=== PATIENT | male | born 1945 | race Caucasian/White ===

== ENCOUNTER 2017-10-10 13:32 | Observation (INO) | payer MEDICARE, OTHER ==
[~2017-10-10] VITALS: Ht 175.3 cm; Wt 64.4 kg
[~2017-10-10 13:32] MED LIST: AC325T PO; AC500T PO; ALLP100T PO; AMLO5TAB2 PO; ASPI1TAB PO; ASPI325T32 PO; ATIVAN PO; BELLADONNA; BETA15CR5 TP; BETH25TA PO; BETHAMETHASONE EXT; CARDURA PO; CEPH-38 PO; CETI10TA17 PO; CITA20TA4 PO; CLTR1C90 TP; CYCL10TA9 PO; DICL250C8 PO; DICL500C PO; DOXA8TAB33 PO; FURO40TA4 PO; GBPN300C PO; GLIPIZIDE PO; HYDR-3720 PO; HYDR1TAB86 PO; HYDROCODONE PO; INDERAL PO; INSASP10V SQ; INSU100I10 SQ; INSU100I23 SQ; INSU100V6 SQ; LISI40TA PO; LORA0.5T PO; MULT-963 PO; MULT1TAB53 PO; NEURONTIN PO; NIAC750T PO; NPPH15OP OU; ONDA-42 SL; ONDA-43 PO; OTC ALLERGY MED; OXYB5TAB9 PO; PHEN16.297 PO; POTA10TA36 PO; PROP40TA5 PO; PROP80TA3 PO; SULF-222 PO; SULF1TAB23 PO; SULF1TAB38 PO; VARD20TA30 PO; ZYLOPRIM PO; [UNRECOGNIZED DRUG - OTHER]; [UNRECOGNIZED DRUG - REMARK]
--- OUTSIDE RECORDS SUMMARY | 2017-10-10 13:37 | XMS REPORT ---
Author Author DERRICK TANG Organization [employer] Address Unknown Phone Unavailable Care Team Providers Care Movement Assembler Name Role Phone DERRICK TANG CP Unavailable Allergies No Known Allergies Problems Problem Type Condition Code Onset Dates Condition Status Problem Lymphedema I89.0 Active Problem Allergic rhinitis, unspecified allergic rhinitis type J30.9 Active Problem Urinary retention R33.9 Active Problem Benign prostatic hyperplasia with lower urinary tract symptoms, prostatic enlargement of unspecified morphology N40.1 Active Problem 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 Active Problem Microalbuminuria R80.9 Active Problem Generalized anxiety disorder F41.1 Active Problem Essential hypertension I10 Active Problem Type 2 diabetes mellitus with diabetic polyneuropathy E11.42 Active Medications Medication Code System Code Instructions Start Date End Date Status Dosage Lortab [facility] [address]-22 10-325 MG Orally every 4-6 hrs as needed for pain November 24, [address] [facility] [address]-82 0.5 MG September 25, 2014 take 1 tablet (0.5 mg) by oral route 2 times per day Results No Known Results Summary Purpose [employer] Submission
--- OUTSIDE RECORDS SUMMARY | 2017-10-10 13:37 | XMS REPORT ---
Author Author CLYDE DERRICK Organization [facility] Address [address] [place] [address] Care Team Providers Care Lens Generating Machine Tender Name Role Phone VINCE TANGHANY Unavailable PROBLEMS Type Condition ICD9-CM Code QTT24-EA Code Onset Dates Condition Status SNOMED Code Problem Lymphedema I89.0 Active 141945423 Problem Generalized anxiety disorder F41.1 Active 293529003 Problem Essential hypertension I10 Active 60298394 Problem Bilateral primary osteoarthritis of knee M17.0 Active 647254479 Problem Chronic edema R60.9 Active 549966874 Problem Tear of left rotator cuff, unspecified tear extent M75.102 Active 395529471 Problem Type 2 diabetes mellitus with diabetic polyneuropathy E11.42 Active 514721075 Problem Chronic prescription opiate use Z79.899 Active 957706765 Problem 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 Active 051970736 Problem 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 Active 384752136 Problem Urinary retention R33.9 Active 682918084 Problem Physical debility R53.81 Active 21524275 Problem Microalbuminuria R80.9 Active 032011931 Problem Benign prostatic hyperplasia with lower urinary tract symptoms, prostatic enlargement of unspecified morphology N40.1 Active 504693776 Problem Allergic rhinitis, unspecified allergic rhinitis type J30.9 Active 34035007 ALLERGIES No Information SOCIAL HISTORY Never Assessed PLAN OF CARE VITAL SIGNS MEDICATIONS Unknown Medications RESULTS No Results PROCEDURES No Known procedures IMMUNIZATIONS No Known Immunizations MEDICAL (GENERAL) HISTORY Type Description Date Medical History type II diabetes Medical History hypertension Medical History Arthritis Medical History hernia - 1950 Medical History Cellulitis in past Surgical History cataract surgery Surgical History hernia repair Surgical History Lesion removed on L foot & skin graft Hospitalization History Cellulitis
--- OUTSIDE RECORDS SUMMARY | 2017-10-10 13:37 | XMS REPORT ---
Author Author DERRICK TANG [employer] Address Unknown Phone Unavailable Care Team Providers Care Design And Sales Consultant Name Role Phone DERRICK TANG CP Unavailable Allergies No Known Allergies Problems Problem Type Condition Code Onset Dates Condition Status Problem Generalized anxiety disorder F41.1 Active Problem Type 2 diabetes mellitus with diabetic polyneuropathy E11.42 Active Problem Microalbuminuria R80.9 Active Problem Allergic rhinitis, unspecified allergic rhinitis type J30.9 Active Problem Lymphedema I89.0 Active Problem 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 Active Problem Tear of left rotator cuff, unspecified tear extent M75.102 Active Problem Chronic prescription opiate use Z79.899 Active Problem Benign prostatic hyperplasia with lower urinary tract symptoms, prostatic enlargement of unspecified morphology N40.1 Active Problem Essential hypertension I10 Active Problem 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 Active Problem Urinary retention R33.9 Active Medications Medication Code System Code Instructions Start Date End Date Status Dosage MS Contin [facility] [address]-05 15 MG Orally every 12 hrs May 01, 2016 1 tablet Results No Known Results Summary Purpose [employer] Submission
--- OUTSIDE RECORDS SUMMARY | 2017-10-10 13:37 | XMS REPORT ---
Author Author DERRICK TANG [facility] [employer] Address Unknown Phone Unavailable Care Team Providers Care Director Of Rooms Name Role Phone DERRICK TANG Unavailable Allergies No Known Allergies Problems Problem Type Condition ICD-9 Code Onset Dates Condition Status Problem Lumbago 724.2 Active Problem Unspecified essential hypertension 401.9 Active Problem Diabetes with neurological manifestations, type II or unspecified type , not stated as uncontrolled 250.60 Active Problem Polyneuropathy in diabetes 357.2 Active Problem Microalbuminuria due to type 2 diabetes mellitus 250.00 Active Problem Anxiety 300.00 Active Problem Chronic pain 338.29 Active Problem Unspecified disorder of bladder 596.9 Active Problem Hypertrophy (benign) of prostate without urinary obstruction and other lower urinary tract symptoms [LUTS] 600.00 Active Problem Lymphedema 457.1 Active Problem Generalized osteoarthrosis, unspecified site 715.00 Active Medications Medication Code System Code Instructions Start Date End Date Status Dosage Bethanechol Chloride [facility] [address]-36 25 MG Orally 3 times a day Apr 21, 2014 1 tablet Results No Known Results Summary Purpose [employer] Submission
--- OUTSIDE RECORDS SUMMARY | 2017-10-10 13:38 | XMS REPORT ---
Author Author JESSICA MICHEL [facility] Address [address] [place] [address] Care Team Providers Care Scrap Preparer Name Role Phone JESSICA MICHEL Unavailable PROBLEMS Type Condition ICD9-CM Code CIB44-PP Code Onset Dates Condition Status SNOMED Code Problem Lymphedema I89.0 Active 650232333 Problem Generalized anxiety disorder F41.1 Active 998129109 Problem Essential hypertension I10 Active 24963938 Problem Bilateral primary osteoarthritis of knee M17.0 Active 913501893 Problem Chronic edema R60.9 Active 728478606 Problem Tear of left rotator cuff, unspecified tear extent M75.102 Active 937407030 Problem Type 2 diabetes mellitus with diabetic polyneuropathy E11.42 Active 634534529 Problem Chronic prescription opiate use Z79.899 Active 117803545 Problem 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 Active 489638852 Problem 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 Active 356651589 Problem Urinary retention R33.9 Active 577807229 Problem Physical debility R53.81 Active 93634801 Problem Microalbuminuria R80.9 Active 198746654 Problem Benign prostatic hyperplasia with lower urinary tract symptoms, prostatic enlargement of unspecified morphology N40.1 Active 564350903 Problem Allergic rhinitis, unspecified allergic rhinitis type J30.9 Active 22007358 ALLERGIES Substance Reaction Event Type Date Status Iodine Unknown Drug Allergy Dec, Active Gabapentin Unknown Drug Allergy Dec, Active Metformin Unknown Drug Allergy Dec, Active ENCOUNTERS Encounter Location Date Diagnosis [facility] [address] [facility] [id number] [address] Oct, [facility] [id number] [address] Sep, Lymphedema I89.0 [facility] [address] [facility] [id number], [place] [address] Sep, [facility] [address] [address] Aug, [facility] [id number] [place] [address]333- 0299 Jun, [facility] [id number] [place] [address]33- 8857 May, [facility] [id number] [place] [address] 77500- 0501 Apr, 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 and Generalized anxiety disorder F41.1 [facility] [id number] [place] [address] 43142- 8611 Apr, [facility] [id number] [place] [address]17- 8649 Apr, 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 ; Generalized anxiety disorder F41.1 ; Lymphedema I89.0 and Chronic edema R60.9 [facility] [address] [place] [address]- 9956 Mar, Cellulitis of left lower extremity L03.116 ; 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 and Bilateral primary osteoarthritis of knee M17.0 [facility] [address] [place] [address]98- 5050 Mar, 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 and Generalized anxiety disorder F41.1 [facility] [address] [place] [address] 77630- 5913 Feb, [facility] [address] [place] [address] 24838- 5358 Feb, [facility] [address] [place] [address] 62927- 2654 Feb, 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 [facility] [id number] [place] [address] 90329- 2027 Feb, 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 and Generalized anxiety disorder F41.1 [facility] [id number] [place] [address] 47200- 0925 Jan, Cellulitis of left lower extremity L03.116 ; Chronic edema R60.9 and Essential hypertension I10 [facility] [id number] [place] [address] 74204- 4847 Jan, 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 and Generalized anxiety disorder F41.1 [place] [facility] [address] [address]- 2640 Dec, 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 and Generalized anxiety disorder F41.1 [facility] [facility] [address] [address]- 6479 Dec, Cellulitis of right lower extremity L03.115 [place] [address] [address]- [address] November, [place] [facility] [address] [address]- 0713 November, Generalized anxiety disorder F41.1 and 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 [place] [facility] [address] [address]- 5270 Oct, Muscle spasm M62.838 and Cellulitis of left lower extremity L03.116 [facility] [id number] [place] [address] 81021- 9584 Oct, Generalized anxiety disorder F41.1 and 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 [facility] [id number] [place] [address] 33773- 5567 Oct, [facility] [id number] [place] [address] 46137- 3789 Sep, Lymphedema I89.0 ; Generalized anxiety disorder F41.1 ; Type 2 diabetes mellitus with diabetic polyneuropathy E11.42 ; Chronic prescription opiate use Z79.899 ; Urinary retention R33.9 ; Cellulitis of left lower extremity L03.116 ; Muscle spasm M62.838 and 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 [facility] [id number] [place] [address] 62501- 6450 Sep, [facility] [address], [place] [address] 12[address] Aug, [facility] [address] [place] [address] 45059- 8704 Aug, [facility] [address], [place] [address] Aug, Lymphedema I89.0 [facility] [id number] [place] [address] 749162- 0211 Jul, [facility] [id number] [place] [address] 353203- 0494 Jun, [facility] [id number] [place] [address] 658408- 5022 May, [facility] [id number] [place] [address] 05280- 8624 Apr, [facility] [address], [place] [address] 9909 Apr, 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 [facility] [address] [place] [address] 22859- 8113 Apr, Type 2 diabetes mellitus with diabetic polyneuropathy E11.42 ; 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 ; Lymphedema I89.0 ; Chronic prescription opiate use Z79.899 and Generalized anxiety disorder F41.1 [facility] [address], [place] [address] Mar, [facility] [address] [address] Mar, [facility] [address], [place] [address] 8853 Feb, [facility] [address] Jan, [facility] [address], [place] [address] 16 Dec, 2015 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 ; Type 2 diabetes mellitus with diabetic polyneuropathy E11.42 ; Generalized anxiety disorder F41.1 and Anemia, unspecified type D64.9 [facility] [address], [place] [address]- 7844 Dec, [facility] [id number] [place] [address] 35824- 6155 November, [facility] [id number] [place] [address] 68098- 6799 Oct, [facility] [id number] [place] [address] 90223- 7844 Sep, [facility] [id number] [place] [address] 75719- 5186 Sep, 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 and Generalized anxiety disorder F41.1 [facility] [id number] [place] [address] 00235- 4130 Aug, [facility] [address] [place] [address] 12875- 3872 Aug, [facility] [address] [place] [address] 24850- 7452 Aug, [facility] [address] [place] [address] 47070- 6632 Aug, 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 ; Essential hypertension I10 ; Type 2 diabetes mellitus with diabetic polyneuropathy E11.42 ; Chronic prescription opiate use Z79.899 ; 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 ; Tear of left rotator cuff, unspecified tear extent M75.102 and Iron deficiency anemia, unspecified iron deficiency anemia type D50.9 [facility] [address] [place] [address] 51547- 9585 05 Aug, 2015 [facility] [id number] [place] [address] 56454- 7662 Aug, [facility] [address], [place] [address]- 5663 Jul, [facility] [id number] [place] [address] 66457- 2314 Jun, [facility] [id number] [place] [address] 69609- 7146 May, 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 ; Urinary retention R33.9 ; Essential hypertension I10 ; Generalized anxiety disorder F41.1 ; Microalbuminuria R80.9 ; Type 2 diabetes mellitus with diabetic polyneuropathy E11.42 ; Allergic rhinitis, unspecified allergic rhinitis type J30.9 and Iron deficiency anemia, unspecified iron deficiency anemia type D50.9 [facility] [address], [place] [address]- 5884 Apr, [facility] [id number] [place] [address] 78623- 5113 Mar, [facility] [id number] [place] [address] 59120- 4101 Mar, [facility] [id number] [place] [address] 05972- 9817 Feb, [facility] [id number] [place] [address] 37896- 7248 Jan, [facility] [id number] [place] [address] 62332- 0270 Dec, [facility] [id number] [place] [address] 42811- 9642 Dec, Generalized osteoarthrosis, unspecified site 715.00 ; Chronic pain 338.29 ; Unspecified essential hypertension 401.9 and Lymphedema 457.1 [facility] [address], [place] [address]- 7616 Dec, [facility] [id number] [place] [address] 23920- 9364 November, [facility] [place] [facility] [address] [id number] [place] [address]- 4574 14 Oct, 2014 [facility] [place] [facility] [address] [id number] [place] [address]- 1781 Oct, [facility] [place] [facility] [address] [id number] [place] [address]- 0905 Sep, [facility] [place] [facility] [address] [id number] [place] [address]- 3066 Sep, [facility] [place] [facility] [address] [id number] [place] [address]- 6363 Sep, [facility] [place] [facility] [address] [id number] [place] [address]- 0991 Sep, [facility] [place] [facility] [address] [facility] [id number] [place] [address]- 8924 Sep, [facility] [place] [facility] [address] [facility] [id number] [place] [address]- 7654 Sep, [facility] [place] [facility] [address] [facility] [id number] [place] [address]- 9050 Aug, 2014 [facility] [place] [facility] [address] [facility] [id number] [place] [address]- 7264 Aug, 2014 [facility] [place] [facility] [address] [facility] [id number] [place] [address]- 0481 Aug, 2014 [facility] [place] [facility] [address] [facility] [id number] [address]- 0883 Aug, 2014 [facility] [place] [facility] [address] [facility] [id number] [place] [address]- 4037 Aug, 2014 [facility] [place] [facility] [address] [id number] [place] [address]- 8059 Aug, 2014 [facility] [place] [facility] [address] [facility] [id number] [place] [address]783 Aug, 2014 [facility] [place] [facility] [address] [facility] [id number], [place] [address]- 5167 Aug, [facility] [address] [id number] [place] [address]- 7265 Jul, [facility] [place] [facility] [address] [id number] [place] [address]- 3467 Jul, [facility] [place] [facility] [address] [id number] [place] [address]- 2388 Jul, [facility] [place] [facility] [address] [id number] [place] [address]- 5099 Jul, [facility] [place] [facility] [address] [id number] [place] [address]- 7720 Jul, [facility] [place] [facility] [address] [id number] [place] [address]- 7846 Jul, [facility] [place] [facility] [address] [facility] [id number] [place] [address]- 9855 Jun, [facility] [place] [facility] [address] [id number] [place] [address]- 0518 Jun, [facility] [place] [facility] [address] [id number] [place] [address]- 9195 Jun, [facility] [place] [facility] [address] [facility] [id number] [place] [address]- 5026 Jun, [facility] [place] [facility] [address] [id number] [place] [address]- 6559 Jun, [facility] [place] [facility] [address] [id number] [place] [address]- 7647 Jun, [facility] [place] [facility] [address] [id number] [place] [address]- 6675 Jun, [facility] [place] [facility] [address] [id number] [place] [address]- 5555 Jun, [facility] [place] [facility] [address] [facility] [id number] [place] [address]- 4558 Jun, [facility] [place] [facility] [id number], [place] [address]- 2546 Jun, [facility] [id number], [place] [address] 2546 Jun, [facility] [address] [facility] [id number], [place] [address]- 2546 May, [facility] [address], [place] [address]- 2546 May, [facility] [address] [facility] [id number], [place] [address]- 2546 May, [facility] [address], [place] [address]- 6316 Apr, [facility] [id number], [place] [address]- 0335 Apr, [facility] [address], [place] [address]- 1391 Apr, [facility] [address], [place] [address]- 5088 Apr, [facility] [address], [place] [address]- 2559 Mar, [facility] [id number] [address]- 3476 Mar, [facility] [id number] [address]- 5006 Mar, [facility] [id number] [address]- 2547 Mar, [facility] [id number], [place] [address]- 6189 Feb, IMMUNIZATIONS No Known Immunizations SOCIAL HISTORY Never Assessed REASON FOR VISIT leg swelling for a week or more and a sore on the back of the right calf- Damion [facility] PLAN OF CARE Activity Details Follow Up Regular appt. Reason: VITAL SIGNS Height 70 in 2016-12-19 Weight 175 lbs 2016-12-19 Temperature 98.9 degrees Fahrenheit 2016-12-19 Heart Rate 62 bpm 2016-12-19 Respiratory Rate 20 2016-12-19 BMI 25.11 kg/m2 2016-12-19 Blood pressure systolic 98 mmHg 2016-12-19 Blood pressure diastolic 54 mmHg 2016-12-19 MEDICATIONS Medication Instructions Dosage Frequency Start Date End Date Duration Status Lantus 100 UNIT/ML 6-7 Units 1 time per day Mar, Active Flonase 50 MCG/ACT Nasally Once a day 1 spray in each nostril 24h Active propranolol 80 mg take 1 tablet (80 mg) by oral route 2 times per day Aug, Active Lisinopril 20 MG 20 Mg by Oral route 2 times per day Sep, Active Multivitamin 1 Tablet 1 time per day Mar, Active Ativan 0.5 MG Orally 2 times a day take 1 tablet (0.5 mg) 12h Sep, 28 days Active MS Contin 15 MG Orally every 12 hrs 1 tablet 12h Apr, 28 days Active Cardura 8 mg 0.5 Tablet 2 times per day Mar, Active Potassium Chloride 10 mEq Orally 2 times a day 1 tablet with food 12h Mar, 30 days Active Betamethasone Dipropionate 0.05 % Externally Once a day prn 1 application to affected area Active Cefdinir 300 MG Orally every 12 hrs 1 capsule 12h Dec, Dec, 07 days Active Visine-A 0.025-0.3 % 2 Drops by Ophthalmic route 4 times per day PRN Sep, Active Furosemide 40 MG take 1 tablet (40 mg) by oral route 2 times per day Mar, Active Ondansetron 8 MG take 1 tablet on top of the tongue where it will dissolve , then swallow by Oral route every 8 hours Jun, Active Bethanechol Chloride 25 MG Orally 3 times a day 1 tablet 8h Apr, Active Lortab 10-325 MG Orally 3 times a day 1 tablet as needed 8h November, 28 days Active RESULTS No Results PROCEDURES Procedure Date Ordered Result Body Site COUNT INCLUDES THE [facility] VISIT ESTABLISHED PATIENT December 19, 2016 INSTRUCTIONS MEDICATIONS ADMINISTERED No Known Medications MEDICAL (GENERAL) HISTORY Type Description Date Medical History type II diabetes Medical History hypertension Medical History Arthritis Medical History hernia - 1950 Medical History Cellulitis in past Surgical History cataract surgery Surgical History hernia repair Surgical History Lesion removed on L foot & skin graft Hospitalization History Cellulitis
--- OUTSIDE RECORDS SUMMARY | 2017-10-10 13:38 | XMS REPORT ---
Author Author DERRICK TANG Organization [facility] Address [address] [place] [address] Care Team Providers Care Upper Doubler Name Role Phone DERRICK TANG Unavailable PROBLEMS Type Condition ICD9-CM Code [id number] Code Onset Dates Condition Status SNOMED Code Problem Allergic rhinitis, unspecified allergic rhinitis type J30.9 Active 48768251 Problem Essential hypertension I10 Active 66961357 Problem Lymphedema I89.0 Active 244088957 Problem Benign prostatic hyperplasia with lower urinary tract symptoms, prostatic enlargement of unspecified morphology N40.1 Active 563974098 Problem 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 Active 488355471 Problem Urinary retention R33.9 Active 712528770 Problem Microalbuminuria R80.9 Active 923356990 Problem Chronic edema R60.9 Active 665497999 Problem Chronic prescription opiate use Z79.899 Active 447945390 Problem Type 2 diabetes mellitus with diabetic polyneuropathy E11.42 Active 072222909 Problem Generalized anxiety disorder F41.1 Active 269241169 Problem 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 Active 155696266 Problem Tear of left rotator cuff, unspecified tear extent M75.102 Active 082091590 ALLERGIES No Information SOCIAL HISTORY Never Assessed PLAN OF CARE VITAL SIGNS MEDICATIONS Medication Instructions Dosage Frequency Start Date End Date Duration Status Ativan 0.5 MG take 1 tablet (0.5 mg) by oral route 2 times per day Sep, Active Lortab 10-325 MG Orally 3 times a day as needed 1 tablet November, Active MS Contin 15 MG Orally every 12 hrs 1 tablet 12h Apr, Active RESULTS No Results PROCEDURES No Known procedures [...]
--- OUTSIDE RECORDS SUMMARY | 2017-10-10 13:38 | XMS REPORT ---
Author Author RAMIREZ FERRER Organization [employer] Address Unknown Phone Unavailable Care Team Providers Care Industrial Sales Manager Name Role Phone RAMIREZ FERRER CP Unavailable Allergies No Known Allergies Problems Problem Type Condition Code Onset Dates Condition Status Problem Lumbago [...] Start Date End Date Status Dosage Lortab [facility] [address]-97 10-325 MG Orally every 4-6 hrs as needed for pain November 24, 2014 1 tablet Ativan [facility] [address]-16 0.5 MG September 25, 2014 take 1 tablet (0.5 mg) by oral route 2 times per day Results No Known Results Summary Purpose [employer] Submission
--- OUTSIDE RECORDS SUMMARY | 2017-10-10 13:38 | XMS REPORT ---
Author Author CLYDE DERRICK Organization [facility] Address [address] [place] [address] Care Team Providers Care Truck Headlight Assembler Name Role Phone DERRICK TANG Unavailable PROBLEMS Type Condition ICD9-CM Code [id number] Code Onset Dates Condition Status SNOMED Code Problem Microalbuminuria R80.9 Active 585491487 Problem Essential hypertension I10 Active 13669678 Problem Type 2 diabetes mellitus with diabetic polyneuropathy E11.42 Active 316516716 Problem Allergic rhinitis, unspecified allergic rhinitis type J30.9 Active 47421777 Problem Lymphedema I89.0 Active 059842007 Problem Generalized anxiety disorder F41.1 Active 267367649 Problem Chronic prescription opiate use Z79.899 Active 353012577 Problem 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 Active 341483257 Problem Urinary retention R33.9 Active 560319800 Problem Benign prostatic hyperplasia with lower urinary tract symptoms, prostatic enlargement of unspecified morphology N40.1 Active 211181055 Problem Tear of left rotator cuff, unspecified tear extent M75.102 Active 738677176 Problem 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 Active 274899684 ALLERGIES Unknown Allergies SOCIAL HISTORY No smoking Hx information available PLAN OF CARE VITAL SIGNS MEDICATIONS Medication Instructions Dosage Frequency Start Date End Date Duration Status Ativan 0.5 MG take 1 tablet (0.5 mg) by oral route 2 times per day Sep, Active MS Contin 15 MG Orally every 12 hrs- Appt needded in Mar 1 tablet Aug Active Lortab 10-325 MG Orally 3 times a day as needed- appt needed in Mar. tablet November, Active RESULTS No Results PROCEDURES No Known procedures IMMUNIZATIONS No Known Immunizations
--- OUTSIDE RECORDS SUMMARY | 2017-10-10 13:38 | XMS REPORT ---
Author Author SAMIR OSBORN Organization [employer] Address Unknown Phone Unavailable Care Team Providers Care Medical Receptionist Medical Assistant Name Role Phone SAMIR OSBORN CP Unavailable Allergies No Known Allergies Problems [...] Instructions Start Date End Date Status Dosage Ativan [facility] [address]-98 0.5 MG September 25, 2014 take 1 tablet (0.5 mg) by oral route 2 times per day Lortab [facility] [address]-27 10-325 MG Orally every 4-6 hrs as needed for pain November 24, 2014 1 tablet Results No Known Results Summary Purpose [employer] Submission
--- OUTSIDE RECORDS SUMMARY | 2017-10-10 13:38 | XMS REPORT ---
Author Author CLYDEDERRICK CALDWELL Organization [facility] Address [address] [place] [address] Care Team Providers Care Hand Turner Name Role Phone DERRICK TANG Unavailable PROBLEMS Type Condition ICD9-CM Code [id number] Code Onset Dates Condition Status SNOMED Code Problem Allergic rhinitis, unspecified allergic rhinitis type J30.9 Active 17352927 Problem Essential hypertension I10 Active 15787331 Problem Lymphedema I89.0 Active 878123557 Problem Benign prostatic hyperplasia with lower urinary tract symptoms, prostatic enlargement of unspecified morphology N40.1 Active 942139091 Problem 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 Active 567609609 Problem Urinary retention R33.9 Active 254189843 Problem Microalbuminuria R80.9 Active 943429957 Problem Chronic edema R60.9 Active 152569593 Problem Chronic prescription opiate use Z79.899 Active 490111394 Problem Type 2 diabetes mellitus with diabetic polyneuropathy E11.42 Active 786154332 Problem Generalized anxiety disorder F41.1 Active 876484299 Problem 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 Active 780558731 Problem Tear of left rotator cuff, unspecified tear extent M75.102 Active 584791048 ALLERGIES Unknown Allergies SOCIAL HISTORY No smoking Hx information available PLAN OF CARE VITAL SIGNS MEDICATIONS Medication Instructions Dosage Frequency Start Date End Date Duration Status Ativan 0.5 MG take 1 tablet (0.5 mg) by oral route 2 times per day Sep, Active MS Contin 15 MG Orally every 12 hrs 1 tablet 12h 13 Apr, 2016 Active Lortab 10-325 MG Orally 3 times a day as needed 1 tablet November, Active RESULTS No Results PROCEDURES No Known procedures IMMUNIZATIONS No Known Immunizations
--- OUTSIDE RECORDS SUMMARY | 2017-10-10 13:39 | XMS REPORT ---
Author Author CLYDE DERRICK Organization [facility] Address [address] [place] [address] Care Team Providers Care Mining Engineering Technologist Name Role Phone VINCE TANGHANY Unavailable PROBLEMS Type Condition ICD9-CM Code ZUQ75-UT Code Onset Dates Condition Status SNOMED Code Problem Allergic rhinitis, unspecified allergic rhinitis type J30.9 Active 71051587 Problem Essential hypertension I10 Active 60938899 Problem Lymphedema I89.0 Active 773819092 Problem Benign prostatic hyperplasia with lower urinary tract symptoms, prostatic enlargement of unspecified morphology N40.1 Active 500183595 Problem 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 Active 556442279 Problem Urinary retention R33.9 Active 867320408 Problem Microalbuminuria R80.9 Active 916425655 Problem Chronic edema R60.9 Active 434039848 Problem Chronic prescription opiate use Z79.899 Active 054293077 Problem Type 2 diabetes mellitus with diabetic polyneuropathy E11.42 Active 176712852 Problem Generalized anxiety disorder F41.1 Active 452534312 Problem 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 Active 882002480 Problem Tear of left rotator cuff, unspecified tear extent M75.102 Active 694042186 ALLERGIES No Information SOCIAL HISTORY Never Assessed PLAN OF CARE VITAL SIGNS MEDICATIONS Medication Instructions Dosage Frequency Start Date End Date Duration Status Lortab 10-325 MG Orally 3 times a day as needed 1 tablet November, Active Ativan 0.5 MG take 1 tablet (0.5 mg) by oral route 2 times per day Sep, Active Ondansetron 8 MG take 1 tablet on top of the tongue where it will dissolve , then swallow by Oral route every 8 hours Jun, Active MS Contin 15 MG Orally every 12 hrs 1 tablet 12h 13 Apr, 2016 Active RESULTS No Results PROCEDURES No Known [...]
--- OUTSIDE RECORDS SUMMARY | 2017-10-10 13:39 | XMS REPORT ---
Author Author DERRICK TANG [employer] Address Unknown Phone Unavailable Care Team Providers Care Development Executive Name Role Phone DERRICK TANG CP Unavailable Allergies, Adverse Reactions, Alerts Substance Reaction Event Type Iodine Info Not Available Drug Allergy Gabapentin Info Not Available Drug Allergy Metformin Info Not Available Drug Allergy Problems Problem Type Condition Code Onset Dates Condition Status Assessment 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 Active Problem Lymphedema I89.0 Active Problem Allergic rhinitis, [...] diabetes mellitus with diabetic polyneuropathy E11.42 Active Assessment Iron deficiency anemia, unspecified iron deficiency anemia type D50.9 Active Assessment Microalbuminuria R80.9 Active Assessment Generalized anxiety disorder F41.1 Active Assessment Allergic rhinitis, unspecified allergic rhinitis type J30.9 Active Assessment Essential hypertension I10 Active Assessment Type 2 diabetes mellitus with diabetic polyneuropathy E11.42 Active Assessment Urinary retention R33.9 Active Medications Medication Code System Code Instructions Start Date End Date Status Dosage Fexofenadine-Pseudoephed ER [facility] [address]-29 60-120 MG Orally Twice a day as needed for allergies May 29, 2015 1 tablet as needed Visine-A [facility] [address]-74 0.025-0.3 % October 05, 2014 2 Drops by Ophthalmic route 4 times per day PRN cyclobenzaprine [facility] [address]-11 10 mg Mar 23, 2014 take 1 tablet (10 mg) by oral route 2 times per day Bethanechol Chloride [facility] [address]-48 25 MG Orally 3 times a day Apr 21, 2014 1 tablet Cardura [facility] [address]-86 8 mg Mar 23, 2014 0.5 Tablet 2 times per day Flonase [facility] [address]-66 50 MCG/ACT Nasally Once a day 1 spray in each nostril Furosemide [facility] [address]-40 40 MG Mar 23, 2014 take 1 tablet ( 40 mg) by oral route 2 times per day Ondansetron [facility] [address]-08 8 mg Jun 28, 2014 take 1 tablet on top of the tongue where it will dissolve, then swallow by Oral route every 8 hours Lisinopril [facility] [address]-46 20 MG Orally October 05, 2014 20 Mg by Oral route 2 times per day Potassium Chloride [facility] [address]-18 10 mEq Mar 23, 2014 take 1 tablet (10 meq) by oral route 2 times per day with food Katty Allergy [facility] [address]-63 60 MG Orally Twice a day 1 tablet propranolol [facility] 0 80 mg Sep 01, 2014 take 1 tablet (80 mg) by oral route 2 times per day Multivitamin [facility] [address] Mar 23, 2014 1 Tablet 1 time per day Lantus [facility] [address]-11 100 unit/mL Mar 23, 2014 4-5 Units 1 time per day Lortab [facility] [address]-64 10-325 MG Orally every 4-6 hrs as needed for pain November 24, 2014 1 tablet Procedures Procedure Coding System Code Date GLYCATED HEMOGLOBIN TEST CPT-4 53796 May 29, 2015 [facility] VISIT ESTABLISHED PATIENT CPT-4 G0467 May 29, 2015 MICROALBUMIN, SEMIQUANT CPT-4 57791 May 29, 2015 Office Visit, Est Pt., Level 4 CPT-4 27124 May 29, 2015 Vital Signs Date/Time: May 29, 2015 Temperature 97.8 F Weight 151.0 lbs Height 70 in BMI 21.66 Index Blood Pressure Diastolic 68 mmHg Blood Pressure Systolic 130 mmHg Cardiac Monitoring Heart Rate 72 bpm Results Name Result Date Reference Range Unit Abnormality Flag A1C (IN HOUSE) Summary Purpose [employer]Works Submission
--- OUTSIDE RECORDS SUMMARY | 2017-10-10 13:39 | XMS REPORT ---
Author Author DERRICK TANG [employer] Address Unknown Phone Unavailable Care Team Providers Care Hedis Registered Nurse Rn Name Role Phone DERRICK TANG CP Unavailable Allergies, Adverse Reactions, Alerts Substance Reaction Event Type Iodine Info Not Available Drug Allergy Gabapentin Info Not Available Drug Allergy Metformin Info Not Available Drug Allergy Problems Problem Type Condition Code Onset Dates Condition Status Problem Generalized anxiety disorder F41.1 Active Problem Type 2 diabetes mellitus with diabetic polyneuropathy E11.42 Active Problem Microalbuminuria R80.9 Active Problem 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 Active Problem Tear of left rotator cuff, unspecified tear extent M75.102 Active Problem Chronic prescription opiate use Z79.899 Active Problem Benign prostatic hyperplasia with lower urinary tract symptoms, prostatic enlargement of unspecified morphology N40.1 Active Problem Essential hypertension I10 Active Problem 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 Active Problem Urinary retention R33.9 Active Assessment Generalized anxiety disorder F41.1 Active Assessment 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 Active Assessment Type 2 diabetes mellitus with diabetic polyneuropathy E11.42 Active Assessment Chronic prescription opiate use Z79.899 Active Problem Allergic rhinitis, unspecified allergic rhinitis type J30.9 Active Assessment Lymphedema I89.0 Active Problem Lymphedema I89.0 Active Medications Medication Code System Code Instructions Start Date End Date Status Dosage propranolol NDC 0 80 mg Sep 01, 2014 take 1 tablet (80 mg) by oral route 2 times per day Visine-A [facility] [address]-61 0.025-0.3 % October 05, 2014 2 Drops by Ophthalmic route 4 times per day PRN Fexofenadine-Pseudoephed ER [facility] [address]-55 60-120 MG Orally Twice a day as needed for allergies May 29, 2015 1 tablet as needed Lantus [facility] [address]-02 100 UNIT/ML Mar 23, 2014 6-7 Units 1 time per day Potassium Chloride [facility] [address]-06 10 mEq Mar 23, 2014 take 1 tablet (10 meq) by oral route 2 times per day with food Multivitamin [facility] [address]35 Mar 23, 2014 1 Tablet 1 time per day Furosemide [facility] [address]-81 40 MG Mar 23, 2014 take 1 tablet ( 40 mg) by oral route 2 times per day Ondansetron [facility] [address]-67 8 MG Jun 28, 2014 take 1 tablet on top of the tongue where it will dissolve, then swallow by Oral route every [address] [facility] [address]-58 15 MG Orally every 12 hrs- Appt needded in MarApr 30, [address] [facility] [address]-36 0.5 MG Appt needed in September 25, 2014 take 1 tablet (0.5 mg) by oral route 2 times per day Lis[address]ril [facility] [address]-67 20 MG Orally October 05, 2014 20 Mg by Oral route 2 times per day Lortab [facility] [address]-09 10-325 MG Orally 3 times a day as needed- appt needed in November 24, [address] [facility] [address]-29 25 MG Orally 3 times a day Apr 21, [address] [facility] [address]-06 8 mg Mar 23, 2014 0.5 Tablet 2 times per day cyclobenzaprine [facility] [address]-40 10 mg Mar 23, 2014 take 1 tablet (10 mg) by oral route 2 times per day Flonase [facility] [address]-41 50 MCG/ACT Nasally Once a day 1 spray in each nostril Procedures Procedure Coding System Code Date No Charge CPT-4 07190 Apr 30, 2016 [facility] VISIT ESTABLISHED PATIENT CPT-4 G0467 Apr 30, 2016 GLYCATED HEMOGLOBIN TEST CPT-4 95244 Apr 30, 2016 Office Visit, Est Pt., Level 3 CPT-4 80854 Apr 30, 2016 Vital Signs Date/Time: Apr 30, 2016 Cardiac Monitoring Heart Rate 72 bpm Weight 149.1 lbs Height 70 in BMI 21.39 Index Blood Pressure Diastolic 82 mmHg Blood Pressure Systolic 124 mmHg Results No Known Results Summary Purpose [employer]Works Submission
--- OUTSIDE RECORDS SUMMARY | 2017-10-10 13:39 | XMS REPORT ---
Author Author DERRICK TANG Organization [employer] Address Unknown Phone Unavailable Care Team Providers Care Supervisor Litharge Name Role Phone DERRICK TANG CP Unavailable [...] Start Date End Date Status Dosage Ativan [facility] [address]-76 0.5 MG September 25, 2014 take 1 tablet (0.5 mg) by oral route 2 times per day Lortab [facility] [address]-62 10-325 MG Orally every 4-6 hrs as needed for pain November 24, 2014 1 tablet Potassium Chloride [facility] [address]-75 10 mEq Mar 23, 2014 take 1 tablet (10 meq) by oral route 2 times per day with food Results No Known Results Summary Purpose [employer]Works Submission
--- OUTSIDE RECORDS SUMMARY | 2017-10-10 13:39 | XMS REPORT ---
Author Author DERRICK TANG Organization [employer] Address Unknown Phone Unavailable Care Team Providers Care Jukebox Operator Name Role Phone DERRICK TANG CP Unavailable [...] Start Date End Date Status Dosage Ativan [facility] [address]-59 0.5 MG September 25, 2014 take 1 tablet (0.5 mg) by oral route 2 times per day Lortab [facility] [address]-62 10-325 MG Orally every 4-6 hrs as needed for pain November 24, 2014 1 tablet Results No Known Results Summary Purpose [employer] Submission
--- OUTSIDE RECORDS SUMMARY | 2017-10-10 13:39 | XMS REPORT ---
Author Author DERRICK TANG [facility] [employer] Address Unknown Phone Unavailable Care Team Providers Care Casing Cleaner Name Role Phone DERRICK TANG CP Unavailable [...] Active Problem Urinary retention R33.9 Active Medications No Known Medications Results No Known Results Summary Purpose [employer] Submission
--- OUTSIDE RECORDS SUMMARY | 2017-10-10 13:39 | XMS REPORT ---
Author Author ZACH MURRAY [facility] Address [address] [place] [address] Care Team Providers Care Bag Shaker Name Role Phone ZACH MURRAY Unavailable PROBLEMS Type Condition ICD9-CM Code [id number] Code Onset Dates Condition Status SNOMED Code Problem Lymphedema I89.0 Active 161208540 Problem Generalized anxiety disorder F41.1 Active 508581589 Problem Essential hypertension I10 Active 71857276 Problem Bilateral primary osteoarthritis of knee M17.0 Active 137097910 Problem Chronic edema R60.9 Active 482260307 Problem Tear of left rotator cuff, unspecified tear extent M75.102 Active 778053883 Problem Type 2 diabetes mellitus with diabetic polyneuropathy E11.42 Active 927475507 Problem Chronic prescription opiate use Z79.899 Active 954253289 Problem 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 Active 599740970 Problem 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 Active 245142461 Problem Urinary retention R33.9 Active 037948001 Problem Physical debility R53.81 Active 74787265 Problem Microalbuminuria R80.9 Active 026688000 Problem Benign prostatic hyperplasia with lower urinary tract symptoms, prostatic enlargement of unspecified morphology N40.1 Active 466854117 Problem Allergic rhinitis, unspecified allergic rhinitis type J30.9 Active 78199199 ALLERGIES No Information ENCOUNTERS Encounter Location Date Diagnosis [facility] [place] [id number] [address] Oct, [facility] [place] [address], [place] [address] Sep, Lymphedema I89.0 [facility] [place] [id number], [place] [address] Sep, [facility] [place] [id number] [address] Aug, [facility] [place] [address], [place] [address] Jun, [facility] [place] [id number] [place] [address] 80101- 9125 May, [facility] [place] [id number] [place] [address] 31565- 4979 Apr, 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 and Generalized anxiety disorder F41.1 [facility] [place] [id number] [place] [address] 70994- 6573 Apr, [facility] [place] [id number] [place] [address] 18600- 4314 Apr, 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 ; Generalized anxiety disorder F41.1 ; Lymphedema I89.0 and Chronic edema R60.9 [facility] [place] [id number] [place] [address] 15218- 8311 Mar, Cellulitis of left lower extremity L03.116 ; 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 and Bilateral primary osteoarthritis of knee M17.0 [facility] [place] [id number] [place] [address] 82205- 3018 Mar, 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 and Generalized anxiety disorder F41.1 [facility] [place] [id number] [place] [address] 87947- 8973 Feb, [facility] [place] [id number] [place] [address] 11164- 5506 Feb, [facility] [place] [id number] [place] [address] 00387- 6372 Feb, 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 [facility] [place] [id number] [place] [address] 24516- 7362 Feb, 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 and Generalized anxiety disorder F41.1 [facility] [place] [id number] [place] [address] 60151- 0856 Jan, Cellulitis of left lower extremity L03.116 ; Chronic edema R60.9 and Essential hypertension I10 [place] [id number] [place] [address] 87128- 8567 Jan, 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 and Generalized anxiety disorder F41.1 [place] [facility] [id number] [place] [address] 42579- 7723 Dec, 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 and Generalized anxiety disorder F41.1 [place] [address] [address]- 8397 Dec, Cellulitis of right lower extremity L03.115 [place] [address] 04682- 0586 November, [place] [address] 67266- 5775 November, Generalized anxiety disorder F41.1 and 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 [place] [address] 89979- 1523 Oct, Muscle spasm M62.838 and Cellulitis of left lower extremity L03.116 [place] [address] 00284- 8016 Oct, Generalized anxiety disorder F41.1 and 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 [place] [facility] [id number] [place] [address] 25650- 8723 Oct, [facility] [facility] [address] 78964- 2907 Sep, Lymphedema I89.0 ; Generalized anxiety disorder F41.1 ; Type 2 diabetes mellitus with diabetic polyneuropathy E11.42 ; Chronic prescription opiate use Z79.899 ; Urinary retention R33.9 ; Cellulitis of left lower extremity L03.116 ; Muscle spasm M62.838 and 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 [place] [id number] [place] [address] 28307- 7622 Sep, [facility] [address] 29228- 5294 Aug, [facility] [place] [address], [place] [address] 32[address] Aug, [facility] [place] [address] [place] [address] 65347- 8348 Aug, Lymphedema I89.0 [facility] [place] [address] [place] [address] 350625- 0269 Jul, [facility] [place] [id number] [place] [address] 328121- 9947 Jun, [facility] [place] [id number] [place] [address] 877376- 4387 May, [facility] [place] [address] [place] [address] 94428- 3848 Apr, [facility] [place] [id number] [place] [address] 68519- 4853 Apr, 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 [facility] [place] [address], [place] [address] 4315 Apr, Type 2 diabetes mellitus with diabetic polyneuropathy E11.42 ; 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 ; Lymphedema I89.0 ; Chronic prescription opiate use Z79.899 and Generalized anxiety disorder F41.1 [facility] [place] [address], [place] [address] 0684 Mar, [facility] [place] [address] [place] [address] 41779- 3934 Mar, [facility] [place] [address] [address] Feb, [facility] [place] [address], [place] [address] 1801 Jan, [facility] [place] [address], [place] [address]- 1370 Dec, 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 ; Type 2 diabetes mellitus with diabetic polyneuropathy E11.42 ; Generalized anxiety disorder F41.1 and Anemia, unspecified type D64.9 [facility] [place] [id number] [place] [address] 35127- 1342 Dec, [facility] [place] [id number] [place] [address] 44406- 5530 November, [facility] [place] [id number] [place] [address] 94426- 2682 Oct, [facility] [place] [id number] [place] [address] 79845- 3184 Sep, [facility] [place] [id number] [place] [address] 99743- 1738 Sep, 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 and Generalized anxiety disorder F41.1 [place] [id number] [place] [address] 74269- 9573 Aug, [facility] [place] [id number] [place] [address] 26744- 9871 Aug, [facility] [place] [id number] [place] [address] 83753- 1070 Aug, [facility] [place] [id number] [place] [address] 65503- 6924 Aug, 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 ; Essential hypertension I10 ; Type 2 diabetes mellitus with diabetic polyneuropathy E11.42 ; Chronic prescription opiate use Z79.899 ; 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 ; Tear of left rotator cuff, unspecified tear extent M75.102 and Iron deficiency anemia, unspecified iron deficiency anemia type D50.9 [facility] [place] [id number] [place] [address] 52723- 5697 05 Aug, 2015 [facility] [place] [id number] [place] [address] 88048- 0683 Aug, [facility] [place] [id number] [place] [address] 87732- 7058 Jul, [facility] [place] [address], [place] [address]- 7513 Jun, [facility] [place] [id number] [place] [address] 15921- 1243 May, 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 ; Urinary retention R33.9 ; Essential hypertension I10 ; Generalized anxiety disorder F41.1 ; Microalbuminuria R80.9 ; Type 2 diabetes mellitus with diabetic polyneuropathy E11.42 ; Allergic rhinitis, unspecified allergic rhinitis type J30.9 and Iron deficiency anemia, unspecified iron deficiency anemia type D50.9 [facility] [place] [id number] [place] [address] 96006- 4189 Apr, [facility] [place] [id number] [place] [address] 53903- 3013 Mar, [facility] [place] [id number] [place] [address] 35220- 7407 Mar, [facility] [place] [id number] [place] [address] 49242- 9935 Feb, [facility] [place] [id number] [place] [address] 62723- 2668 Jan, [facility] [place] [id number] [place] [address] 61333- 9993 Dec, [facility] [place] [id number] [place] [address] 35888- 0326 Dec, Generalized osteoarthrosis, unspecified site 715.00 ; Chronic pain 338.29 ; Unspecified essential hypertension 401.9 and Lymphedema 457.1 [facility] [place] [id number] [place] [address] 40175- 7279 Dec, [facility] [place] [id number] [place] [address] 22538- 6923 November, [facility] [place] [id number] [place] [address] 51137- 5261 Oct, [facility] [place] [facility] [address] [id number] [place] [address]- 3806 Oct, [facility] [place] [facility] [address] [id number] [place] [address]- 4091 Sep, 2014 [facility] [place] [facility] [address] [id number] [place] [address]- 5986 Sep, 2014 [facility] [place] [facility] [address] [id number] [place] [address]- 1186 Sep, 2014 [facility] [place] [facility] [address] [id number] [place] [address]- 0081 Sep, 2014 [facility] [place] [facility] [address] [id number] [place] [address]- 1445 Sep, 2014 [facility] [place] [facility] [address] [facility] [id number] [place] [address]- 2633 Sep, 2014 [facility] [place] [facility] [address] [facility] [id number] [place] [address]- 7037 Aug, 2014 [facility] [place] [facility] [address] [facility] [id number] [place] [address]- 5222 Aug, 2014 [facility] [place] [facility] [address] [facility] [id number] [place] [address]- 6253 Aug, 2014 [facility] [place] [facility] [address] [facility] [id number] [address]- 3721 Aug, 2014 [facility] [place] [facility] [address] [facility] [id number], [place] [address]- 6245 Aug, 2014 [facility] [place] [facility] [address] [facility] [id number] [place] [address]- 8101 Aug, 2014 [facility] [place] [facility] [address] [id number] [place] [address]- 3319 Aug, 2014 [facility] [place] [facility] [address] [facility] [id number] [address]- 8788 Aug, 2014 [facility] [place] [facility] [address] [facility] [id number], [place] [address]- 6772 Jul, [facility] [address] [id number] [place] [address]- 5826 Jul, [facility] [place] [facility] [address] [id number] [place] [address]- 2621 Jul, [facility] [place] [facility] [address] [id number] [place] [address]- 2123 Jul, [facility] [place] [facility] [address] [id number] [place] [address]- 7823 Jul, [facility] [place] [facility] [address] [id number] [place] [address]- 3443 Jul, [facility] [place] [facility] [address] [id number] [place] [address]- 2307 Jun, [facility] [address] [id number] [place] [address]- 8925 Jun, [facility] [place] [facility] [address] [id number] [place] [address]- 8321 Jun, [facility] [place] [facility] [address] [id number] [place] [address]- 5549 Jun, [facility] [place] [facility] [address] [facility] [id number] [place] [address]- 3340 Jun, [facility] [place] [facility] [address] [id number] [place] [address]- 6321 Jun, [facility] [place] [facility] [address] [id number] [place] [address]- 8586 Jun, [facility] [place] [facility] [address] [id number] [place] [address]- 5491 Jun, [facility] [place] [facility] [address] [id number] [place] [address]- 8556 Jun, [facility] [place] [facility] [address] [facility] [id number] [place] [address]- 9730 Jun, [facility] [place] [facility] [address], [place] [address]- 2593 Jun, [facility] [place] [address] 7574 May, [facility] [place] [address] [facility] [id number], [place] [address]- 7718 May, [facility] [place] [address], [place] [address]- 5443 May, [facility] [place] [address] [facility] [id number] 7516 Apr, [facility] [place] [address] [place] [address] 937310- 6734 Apr, [facility] [place] [address] 8463 Apr, [facility] [place] [address], [place] [address]- 8431 Apr, [facility] [place] [address], [place] [address]- 7753 Mar, [facility] [place] [address], [place] [address]- 5886 Mar, [facility] [place] [address], [place] [address]- 6116 Mar, [facility] [place] [id number] [address]- 2336 Mar, [facility] [place] [id number] [address]- 9077 Feb, IMMUNIZATIONS No Known Immunizations SOCIAL HISTORY Never Assessed REASON FOR VISIT Requests return call PLAN OF CARE VITAL SIGNS MEDICATIONS Medication Instructions Dosage Frequency Start Date End Date Duration Status Ativan 0.5 MG Orally 2 times a day take 1 tablet (0.5 mg) 12h Sep, 28 days Active MS Contin 15 MG Orally every 12 hrs 1 tablet Dec, 28 days Active Lortab 10-325 MG Orally 3 times a day 1 tablet as needed 8h November, 28 days Active RESULTS No Results PROCEDURES No Known procedures INSTRUCTIONS MEDICATIONS ADMINISTERED No Known Medications MEDICAL (GENERAL) HISTORY Type Description Date Medical History type II diabetes Medical History hypertension Medical History Arthritis Medical History hernia - 1952 Medical History Cellulitis in past Surgical History cataract surgery Surgical History hernia repair Surgical History Lesion removed on L foot & skin graft Hospitalization History Cellulitis
--- OUTSIDE RECORDS SUMMARY | 2017-10-10 13:39 | XMS REPORT ---
Author Author CLYDE DERRICK Organization [facility] Address [address] [place] [address] Care Team Providers Care Open Soaper Tender Name Role Phone VINCE TANGHANY Unavailable PROBLEMS Type Condition ICD9-CM Code [id number] Code Onset Dates Condition Status SNOMED Code Problem Allergic rhinitis, unspecified allergic rhinitis type J30.9 Active 35462734 Problem Essential hypertension I10 Active 35321082 Problem Lymphedema I89.0 Active 041919918 Problem Benign prostatic hyperplasia with lower urinary tract symptoms, prostatic enlargement of unspecified morphology N40.1 Active 330178167 Problem 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 Active 301825266 Problem Urinary retention R33.9 Active 599688278 Problem Microalbuminuria R80.9 Active 905677186 Problem Chronic edema R60.9 Active 433220739 Problem Chronic prescription opiate use Z79.899 Active 101517254 Problem Type 2 diabetes mellitus with diabetic polyneuropathy E11.42 Active 171384713 Problem Generalized anxiety disorder F41.1 Active 135950371 Problem 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
--- OUTSIDE RECORDS SUMMARY | 2017-10-10 13:40 | XMS REPORT ---
Author Author DERRICK TANG [facility] [place] eClinicalWorks Address Unknown Phone Unavailable Care Team Providers Care Comic Book Writer Name Role Phone DERRICK TANG CP Unavailable [...] Date End Date Status Dosage MS Contin [facility] [address]-42 15 MG Orally every 12 hrs May 01, 2016 1 tablet Lortab [facility] [address]-67 10-325 MG Orally 3 times a day as needed November 24, 2014 1 tablet Ativan [facility] [address]-10 0.5 MG . September 25, 2014 take 1 tablet ( 0.5 mg) by oral route 2 times per day Results No Known Results Summary Purpose eClinicalWorks Submission
--- OUTSIDE RECORDS SUMMARY | 2017-10-10 13:40 | XMS REPORT ---
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 Active Problem Allergic rhinitis, unspecified allergic rhinitis type J30.9 Active Problem Lymphedema I89.0 Active Medications Medication Code System Code Instructions Start Date End Date Status Dosage Potassium Chloride [facility] [address]-56 10 mEq Mar 23, 2014 take 1 tablet (10 meq) by oral route 2 times per day with food Ativan [facility] [address]-09 0.5 MG Appt needed in September 25, 2014 take 1 tablet (0.5 mg) by oral route 2 times per day Cardura [facility] [address]-73 8 mg Mar 23, 2014 0.5 Tablet 2 times per day Ondansetron [facility] [address]-87 8 MG Jun 28, 2014 take 1 tablet on top of the tongue where it will dissolve, then swallow by Oral route every 8 hours cyclobenzaprine [facility] [address]-86 10 mg Mar 23, 2014 take 1 tablet (10 mg) by oral route 2 times per day Bethanechol Chloride [facility] [address]-79 25 MG Orally 3 times a day Apr 21, 2014 1 tablet Visine-A [facility] [address]-49 0.025-0.3 % October 05, 2014 2 Drops by Ophthalmic route 4 times per day PRN Flonase [facility] [address]-44 50 MCG/ACT Nasally Once a day 1 spray in each nostril MS Contin [facility] [address]-59 15 MG Orally every 12 hrs May 01, 2016 1 tablet propranolol ND 0 80 mg Sep 01, 2014 take 1 tablet (80 mg) by oral route 2 times per day Lortab [facility] [address]-73 10-325 MG Orally 3 times a day as needed- appt needed in November 24, 2014 1 tablet Lisinopril [facility] [address]-08 20 MG Orally October 05, 2014 20 Mg by Oral route 2 times per day Multivitamin [facility] [id number] Mar 23, 2014 1 Tablet 1 time per day Furosemide [facility] [address]-91 40 MG Mar 23, 2014 take 1 tablet ( 40 mg) by oral route 2 times per day Lantus [facility] [address]-95 100 UNIT/ML Mar 23, 2014 6-7 Units 1 time per day Fexofenadine-Pseudoephed ER [facility] [address]-17 60-120 MG Orally Twice a day as needed for allergies May 29, 2015 1 tablet as needed Results No Known Results Summary Purpose eClinicalWorks Submission
--- OUTSIDE RECORDS SUMMARY | 2017-10-10 13:40 | XMS REPORT ---
Author Author CLYDE DERRICK Organization [facility] Address [address] [place] [address] Care Team Providers Care Faro Dealer Name Role Phone VINCE TANGHANY Unavailable PROBLEMS Type Condition ICD9-CM Code RNN37-XA Code Onset Dates Condition Status SNOMED Code Problem Allergic rhinitis, unspecified allergic rhinitis type J30.9 Active 57580591 Problem Essential hypertension I10 Active 98809829 Problem Lymphedema I89.0 Active 647394806 Problem Benign prostatic hyperplasia with lower urinary tract symptoms, prostatic enlargement of unspecified morphology N40.1 Active 981850296 Problem 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
[2017-10-10 14:02] LABS: BASOPHILS # (AUTO) 0.1 10^3/uL (0.0-0.1); BASOPHILS % (AUTO) 1 % (0-10); EOSINOPHILS # (AUTO) 0.2 10^3/uL (0.0-0.3); EOSINOPHILS % (AUTO) 5 % (0-10); HEMATOCRIT 31 % (40-54); HEMOGLOBIN 10.3 G/DL (13.3-17.7); LYMPHOCYTES # (AUTO) 1.3 X 10^3 (1.0-4.0); LYMPHOCYTES % (AUTO) 31 % (12-44); MEAN CORPUSCULAR HEMOGLOBIN 31 PG (25-34); MEAN CORPUSCULAR HGB CONC 34 G/DL (32-36); MEAN CORPUSCULAR VOLUME 93 FL (80-99); MEAN PLATELET VOLUME 9.9 FL (7.4-10.4); MONOCYTES # (AUTO) 0.5 X 10^3 (0.0-1.0); MONOCYTES % (AUTO) 11 % (0-12); NEUTROPHILS # (AUTO) 2.2 X 10^3 (1.8-7.8); NEUTROPHILS % (AUTO) 52 % (42-75); PLATELET COUNT 99 10^3/uL (130-400); RED BLOOD COUNT 3.31 10^6/uL (4.35-5.85); RED CELL DISTRIBUTION WIDTH 13.4 % (10.0-14.5); WHITE BLOOD COUNT 4.3 10^3/uL (4.3-11.0)
[2017-10-10 14:13] LABS: INR 1.2 (0.8-1.4); PROTHROMBIN TIME PATIENT 15.5 SEC (12.2-14.7)
[2017-10-10 14:20] LABS: ALANINE AMINOTRANSFERASE 29 U/L (0-55); ALKALINE PHOSPHATASE 218 U/L (40-136); BILIRUBIN,TOTAL 1.1 MG/DL (0.1-1.0); BUN/CREATININE RATIO 7; CALCIUM 7.3 MG/DL (8.5-10.1); CARBON DIOXIDE 31 MMOL/L (21-32); CHLORIDE 95 MMOL/L (98-107); CREATININE SERUM 0.94 MG/DL (0.60-1.30); GFR ESTIMATED > 60; GLUCOSE 197 MG/DL (70-105); MAGNESIUM 1.1 MG/DL (1.8-2.4); POTASSIUM 3.1 MMOL/L (3.6-5.0); SODIUM 135 MMOL/L (135-145); TOTAL PROTEIN 6.2 GM/DL (6.4-8.2)
[2017-10-10 14:21] LABS: ALBUMIN 3.1 GM/DL (3.2-4.5)
--- NOTE | 2017-10-10 14:27 | Diagnostic Imaging Report ---
INDICATION: Chest pain and short of breath. FINDINGS: A single view of the chest shows normal heart size and vascularity. The lungs are clear. There is no effusion or pneumothorax. IMPRESSION: No acute abnormality is seen with no change from 12/17/2012. Dictated by: Dictated on workstation # [id number]
[2017-10-10] MEDS ORDERED: cefTRIAXone INJECTION 1,000 MG in NS (IVPB) 100 ML IV ONE (15:15)
[2017-10-10] MEDS ORDERED: FUROSEMIDE 40 MG/4 ML INJ (LASIX) IVP ONE (15:15)
[2017-10-10] MEDS ORDERED: VANCOMYCIN INJECTION 1,000 MG in NS (IVPB) 250 ML IV ONE (15:15)
[2017-10-10] MEDS: MAGNESIUM 1 GM/100 ML IVPB 100 ML IV SCH ×2 (16:02→17:55)
[2017-10-10 16:40] VITALS: BP 174/75
[2017-10-10] MEDS ORDERED: AZITHROMYCIN 500 MG/NS 250 ML IVPB IV NR ×2 (17:00)
[2017-10-10] MEDS ORDERED: LISI10TA2 PO (18:25)
[2017-10-10] MEDS ORDERED: MORP-33 PO (18:25)
[2017-10-10] MEDS ORDERED: CYCLOBENZAPRINE 10 MG (FLEXERIL) TAB PO PRN (18:45)
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
[2017-10-10] MEDS ORDERED: lisINopril 10 MG (PRINIVIL) TABLET ONE (19:41)
[2017-10-10] MEDS: lisINopril 10 MG (PRINIVIL) TABLET PO SCH (19:48)
[2017-10-10] MEDS: HYDROcodone/APAP 10 MG/325 MG (LORTAB) TAB PO PRN (19:49)
[2017-10-10 20:00] VITALS: BP 185/77
[2017-10-10] MEDS ORDERED: RT-ALBUTEROL/IPRATROPIUM 3 ML (DUONEB) VIAL INH PRN (20:45)
[2017-10-10] MEDS: inSUlin (REGULAR) HUMAN 1 UNIT/0.01 ML (CHARGE PER UNIT) SC SCH (20:54)
[2017-10-10] MEDS: RT-ALBUTEROL/IPRATROPIUM 3 ML (DUONEB) VIAL INH SCH (21:09)
[2017-10-10] MEDS ORDERED: FUROSEMIDE 40 MG/4 ML INJ (LASIX) IV SCH (21:30)
[2017-10-11] VITALS: BP 143/73
[2017-10-11] MEDS: HYDROcodone/APAP 10 MG/325 MG (LORTAB) TAB PO PRN ×4 (00:17→23:57)
[2017-10-11 04:00] VITALS: BP 158/68
[2017-10-11 05:30] LABS: BASOPHILS # (AUTO) 0.1 10^3/uL (0.0-0.1); BASOPHILS % (AUTO) 1 % (0-10); EOSINOPHILS # (AUTO) 0.2 10^3/uL (0.0-0.3); EOSINOPHILS % (AUTO) 4 % (0-10); HEMATOCRIT 29 % (40-54); HEMOGLOBIN 9.5 G/DL (13.3-17.7); LYMPHOCYTES # (AUTO) 1.3 X 10^3 (1.0-4.0); LYMPHOCYTES % (AUTO) 29 % (12-44); MEAN CORPUSCULAR HEMOGLOBIN 31 PG (25-34); MEAN CORPUSCULAR HGB CONC 33 G/DL (32-36); MEAN CORPUSCULAR VOLUME 93 FL (80-99); MEAN PLATELET VOLUME 9.8 FL (7.4-10.4); MONOCYTES # (AUTO) 0.7 X 10^3 (0.0-1.0); MONOCYTES % (AUTO) 15 % (0-12); NEUTROPHILS # (AUTO) 2.3 X 10^3 (1.8-7.8); NEUTROPHILS % (AUTO) 51 % (42-75); PLATELET COUNT 93 10^3/uL (130-400); RED BLOOD COUNT 3.07 10^6/uL (4.35-5.85); RED CELL DISTRIBUTION WIDTH 13.4 % (10.0-14.5); WHITE BLOOD COUNT 4.5 10^3/uL (4.3-11.0)
[2017-10-11] MEDS: inSUlin (REGULAR) HUMAN 1 UNIT/0.01 ML (CHARGE PER UNIT) SC SCH ×4 (05:33→20:37)
[2017-10-11 05:52] LABS: ALANINE AMINOTRANSFERASE 23 U/L (0-55); ALBUMIN 2.6 GM/DL (3.2-4.5); ALKALINE PHOSPHATASE 178 U/L (40-136); BILIRUBIN,TOTAL 0.8 MG/DL (0.1-1.0); BUN/CREATININE RATIO 11; CARBON DIOXIDE 29 MMOL/L (21-32); CHLORIDE 99 MMOL/L (98-107); CREATININE SERUM 0.82 MG/DL (0.60-1.30); GFR ESTIMATED > 60; GLUCOSE 146 MG/DL (70-105); POTASSIUM 2.8 MMOL/L (3.6-5.0); SODIUM 138 MMOL/L (135-145); TOTAL PROTEIN 5.4 GM/DL (6.4-8.2)
[2017-10-11] MEDS ORDERED: INFLUENZA TRIvalent 2017-2018 0.5 ML/45 MCG SYR IM ONE (07:30)
[2017-10-11] MEDS: RT-ALBUTEROL/IPRATROPIUM 3 ML (DUONEB) VIAL INH SCH ×2 (07:52→20:38)
[2017-10-11 08:00] VITALS: BP 173/77
[2017-10-11] MEDS: PROPRANOLOL 20 MG (INDERAL) TABLET PO SCH (08:19)
[2017-10-11] MEDS: morphine ER 15 MG (MS CONTIN) TAB PO SCH ×2 (08:20→20:41)
[2017-10-11] MEDS ORDERED: LORazepam 0.5 MG (ATIVAN) TABLET PO PRN (09:00)
--- NOTE | 2017-10-11 09:57 | Diagnostic Imaging Report ---
INDICATION: Bronchitis EXAMINATION: Chest 10/11/2017 COMPARISON: 10/10/2017 FINDINGS: The heart is stable. Atelectasis in the lungs noted with no infiltrates or effusions. There is a linear density along the periphery of the right upper lung laterally which appears to represent a skinfold as some lung markings seen pass this region. IMPRESSION: 1. Incidental findings as noted above with no acute process. Dictated by: Dictated on workstation # [id number]
[2017-10-11] MEDS ORDERED: KCL 20 MEQ TAB (K-DUR) PO ONE (10:30)
[2017-10-11] MEDS: KCL 20 MEQ TAB (K-DUR) PO SCH ×2 (10:37→12:22)
--- NOTE | 2017-10-11 11:46 | History & Physicial ([facility]) ---
HPI History of Present Illness: 72 M with multiple chronic medical conditions that was admitted with concerns for cellulitis. provides most of the history. States that she was sick about 2 weeks ago and was diagnosed with bronchitis and given an antibiotic. He started having a cough on Thursday and then was not eating well. He missed several doses of his medications because he was not feeling well. She states that she then noticed that his legs were more swollen then normal and very red and tender. He denies any pain or discomfort this AM other then his normal back and knee pain. He was able to get some rest last night and feels better then when he came in. Source: patient, family () Exam Limitations: no limitations Date seen by provider: Oct 11, 2017 Time Seen by Provider: 10:30 Attending Physician Svetlana Bajwa MD PCP Derrick Farrell MD Consult Date of Admission Oct 10, 2017 at 14:53 Home Medications Home Medications Reviewed patient Home Medication Reconciliation performed by pharmacy medication reconciliations radio frequency technician and/or nursing. Patients Allergies have been reviewed. Allergies Coded Allergies: metformin (Unverified Allergy, Severe, 11/11/12) iodine (Unverified Allergy, Unknown, 10/23/13) PIX-Uaxrhe-Vyuwrm Hx Patient Social History Living Status: Lives in home with Alcohol Use: Regular Use (HEAVY USE/ABUSE) Recreational Drug Use: No Smoking Status: Former Smoker ("LIGHT SMOKER" ,BUT NONE FOR YEARS) Recent Foreign Travel: No Contact w/other who traveled: No Recent Hopitalizations: No Recent Infectious Disease Expo: No Physical Abuse Screen: No Sexual Abuse: No Immunizations Up To Date Tetanus Booster (TDap): More than 5yrs Date of Pneumonia Vaccine: Dec 22, 2012 Date of Influenza Vaccine: May 13, 2016 Past Medical History Diabetes mellitus Hypertension Liver cirrhosis Chronic pain Family Medical History Significant Family History: No Pertinent Family Hx Family History: Cancer Cataract Family history: Arthritis Family history: Breast disease Family history: Cardiovascular disease Family history: Diabetes mellitus Family history: Hypertension Heart disease Myocardial infarction Visual impairment No Family History of: Abdominal aortic aneurysm Sequoyah's disease Alcoholism Aphasia Cancer of colon Chest pain Congenital heart disease Congestive heart failure Cystic fibrosis Dementia Dysphagia Family history: Allergy Family history: Alzheimer's disease Family history: Asthma Family history: Coronary thrombosis Family history: Gastrointestinal disease Family history: Glaucoma Family history: Osteoporosis Family history: Thyroid disorder Headache Hearing loss Hereditary disease History of - anemia History of - disorder History of - respiratory disease History of drug abuse Human immunodeficiency virus (HIV) seropositivity Hypercholesterolemia Infertile Kidney disease Malignant neoplasm of lung Parkinson's disease Prostate cancer Psychotic disorder Seizure disorder Stroke Tuberculosis Review of Systems ([facility]) Constitutional: No chills, No fever, malaise EENTM: nose congestion, throat pain Respiratory: cough, No dyspnea on exertion, No orthopnea, No short of breath Cardiovascular: No chest pain, edema, No palpitations Gastrointestinal: no symptoms reported, No abdominal pain, No constipation, No diarrhea, No nausea, No vomiting Genitourinary: No dysuria, frequency, No hematuria Musculoskeletal: joint pain (Chronic knee pain) Skin: rash Psychiatric/Neurological: No Symptoms Reported Reviewed Test Results Reviewed Test Results Lab Laboratory Tests Test 10/10/17 13:48 10/10/17 16:54 10/10/17 20:48 10/11/17 05:18 Range/Units White Blood Count 4.3 4.5 4.3-11.0 10^3/uL Red Blood Count 3.31 L 3.07 L 4.35-5.85 10^6/uL Hemoglobin 10.3 L 9.5 L 13.3-17.7 G/DL Hematocrit 31 L 29 L 40-54 % Mean Corpuscular Volume 93 93 80-99 FL Mean Corpuscular Hemoglobin 31 31 25-34 PG Mean Corpuscular Hemoglobin Concent 34 33 32-36 G/DL Red Cell Distribution Width 13.4 13.4 10.0-14.5 % Platelet Count 99 L 93 L 130-400 10^3/uL Mean Platelet Volume 9.9 9.8 7.4-10.4 FL Neutrophils (%) (Auto) 52 51 42-75 % Lymphocytes (%) (Auto) 31 29 12-44 % Monocytes (%) (Auto) 11 15 H 0-12 % Eosinophils (%) (Auto) 5 4 0-10 % Basophils (%) (Auto) 1 1 0-10 % Neutrophils # (Auto) 2.2 2.3 1.8-7.8 X 10^3 Lymphocytes # (Auto) 1.3 1.3 1.0-4.0 X 10^3 Monocytes # (Auto) 0.5 0.7 0.0-1.0 X 10^3 Eosinophils # (Auto) 0.2 0.2 0.0-0.3 10^3/uL Basophils # (Auto) 0.1 0.1 0.0-0.1 10^3/uL Prothrombin Time 15.5 H 12.2-14.7 SEC INR Comment 1.2 0.8-1.4 Activated Partial Thromboplast Time 30 24-35 SEC Sodium Level 135 138 135-145 MMOL/L Potassium Level 3.1 L 2.8 L 3.6-5.0 MMOL/L Chloride Level 95 L 99 98-107 MMOL/L Carbon Dioxide Level 31 29 21-32 MMOL/L Anion Gap 9 10 5-14 MMOL/L Blood Urea Nitrogen 7 9 7-18 MG/DL Creatinine 0.94 0.82 0.60-1.30 MG/DL Estimat Glomerular Filtration Rate > 60 > 60 BUN/Creatinine Ratio 7 11 Glucose Level 197 H 146 H 70-105 MG/DL Lactic Acid Level 1.58 0.50-2.00 MMOL/L Calcium Level 7.3 L 7.0 L 8.5-10.1 MG/DL Magnesium Level 1.1 L 1.8-2.4 MG/DL Total Bilirubin 1.1 H 0.8 0.1-1.0 MG/DL Aspartate Amino Transf (AST/SGOT) 53 H 36 H 5-34 U/L Alanine Aminotransferase (ALT/SGPT) 29 23 0-55 U/L Alkaline Phosphatase 218 H 178 H 40-136 U/L Troponin I < 0.30 <0.30 NG/ML B-Type Natriuretic Peptide 853.3 H <100.0 PG/ML Total Protein 6.2 L 5.4 L 6.4-8.2 GM/DL Albumin 3.1 L 2.6 L 3.2-4.5 GM/DL Glucometer 179 H 205 H 70-110 MG/DL Test 10/11/17 05:21 10/11/17 11:11 Range/Units Glucometer 151 H 142 H 70-110 MG/DL Radiology Date of Exam: 10/10/17 CHEST 1 VIEW, AP/PA ONLY INDICATION: Chest pain and short of breath. FINDINGS: A single view of the chest shows normal heart size and vascularity. The lungs are clear. There is no effusion or pneumothorax. IMPRESSION: No acute abnormality is seen with no change from 12/17/2012. Physical Exam-([facility]) Physical Exam Vital Signs VS - Last 72 Hours, by Label 10/10/17 10/10/17 10/10/17 10/10/17 13:32 13:40 14:23 16:14 Temp 97.5 Pulse 71 77 Resp 18 18 B/P (MAP) 134/91 (105) 107/65 Pulse Ox 98 95 O2 Delivery Room Air Nasal Cannula Nasal Cannula Nasal Cannula O2 Flow Rate 2.00 2.00 2.00 2.00 10/10/17 10/10/17 10/10/17 10/10/17 16:40 17:00 19:00 19:25 Temp 99.2 Pulse 67 67 71 Resp 18 B/P (MAP) 174/75 (108) Pulse Ox 97 96 O2 Delivery Nasal Cannula Nasal Cannula O2 Flow Rate 2.00 2.00 10/10/17 10/10/17 10/10/17 10/11/17 20:00 21:00 21:09 00:00 Temp 98.3 98.7 Pulse 69 78 Resp 16 18 B/P (MAP) 185/77 (113) 143/73 (96) Pulse Ox 100 95 95 O2 Delivery Nasal Cannula Nasal Cannula Nasal Cannula Nasal Cannula O2 Flow Rate 2.00 2.00 1.50 2.00 10/11/17 10/11/17 10/11/17 01:00 04:00 07:00 Temp 98.4 Pulse 71 64 61 Resp 16 B/P (MAP) 158/68 (98) Pulse Ox 99 O2 Delivery Nasal Cannula O2 Flow Rate 2.00 Capillary Refill : Less Than 3 Seconds General Appearance: WD/WN, no apparent distress, thin HEENT: PERRL/EOMI Neck: non-tender, full range of motion, supple Respiratory: chest non-tender, lungs clear, normal breath sounds, no respiratory distress, no accessory muscle use, No crackles, No rales, No rhonchi Cardiovascular: regular rate, rhythm, no murmur Gastrointestinal: normal bowel sounds, non tender, soft, no organomegaly, No distended, No guarding, No rebound Back: no CVA tenderness Extremities: pedal edema, other (chronic discoloration below knee with lymphedema changes) Neurologic/Psychiatric: supervisor pairing and inspecting II-XII nml as tested, alert, normal mood/affect, oriented x 3 Lymphatic: no adenopathy Assessment/Plan Assessment/Plan Admission Status: Observation (1) Lymphedema of both lower extremities Status: Chronic Assessment & Plan: - Improved with lasix, no signs of cellulitis, stopped antibiotics today, continue home lasix dose (2) Bronchitis Status: Acute Assessment & Plan: - Continue Z-pack, titrate off oxygen as tolerated (3) Hypokalemia Status: Acute Assessment & Plan: - Replaced, repeat labs this afternoon and in AM (4) Hypomagnesemia Status: Acute Assessment & Plan: - Replaced and repeat labs (5) IDDM (insulin dependent diabetes mellitus) Status: Chronic Assessment & Plan: - Poor PO intake, holding home insulin, SSI 1, A1c pending (6) HTN (hypertension) Status: Chronic Assessment & Plan: - Resume home meds Qualifiers: Qualified Codes: I10 - Essential (primary) hypertension (7) Debility Status: Chronic Assessment & Plan: - PT to work with patient, Mostly wheelchair bound at home (8) Normocytic anemia Status: Chronic Assessment & Plan: - No signs of acute bleeding, likely 2/2 chronic disease, will continue to monitor (9) Cirrhosis of liver Status: Chronic Assessment & Plan: - LFTs at baseline Qualifiers: Qualified Codes: K74.60 - Unspecified cirrhosis of liver Clinical Quality Measures DVT/VTE Risk/Contraindication: Risk Factor Score Per Nursin RFS Level Per Nursing on Admit: 4+=Very High Copy Copies To 1: DERRICK FARRELL MD, HOLLY R MD Oct 11, 2017 11:46
[2017-10-11 11:50] VITALS: BP 146/66
[2017-10-11] MEDS: MAGNESIUM 1 GM/100 ML IVPB 100 ML IV SCH ×2 (12:22→13:31)
[2017-10-11] MEDS ORDERED: PATIENT MAY USE OWN MED,SINGLE MED PO SCH (13:45)
[2017-10-11] MEDS ORDERED: cefTRIAXone 1 GM/NS 100 ML IVPB IV SCH ×2 (15:30)
[2017-10-11 16:00] VITALS: BP 135/64
[2017-10-11] MEDS ORDERED: VANCOMYCIN 1 GM/NS 250 ML IVPB IV SCH ×2 (16:00)
[2017-10-11] MEDS: lisINopril 10 MG (PRINIVIL) TABLET PO SCH (16:58)
[2017-10-11] MEDS ORDERED: AZITHROMYCIN 250 MG TAB (ZITHROMAX) PO SCH (17:00)
[2017-10-11] MEDS ORDERED: ASPI-992 PO (17:24)
[2017-10-11] MEDS ORDERED: MULT1TAB69 PO (17:24)
[2017-10-11] MEDS ORDERED: POTA10TA10 PO (17:24)
[2017-10-11] MEDS ORDERED: NPPH15OP OU (17:24)
[2017-10-11] MEDS ORDERED: LORA0.5T PO (17:24)
[2017-10-11] MEDS ORDERED: ONDA8TAB13 PO (17:24)
[2017-10-11] MEDS ORDERED: HYDR-3820 PO (17:24)
[2017-10-11 17:28] LABS: BUN/CREATININE RATIO 11; CALCIUM 7.1 MG/DL (8.5-10.1); CARBON DIOXIDE 30 MMOL/L (21-32); CHLORIDE 99 MMOL/L (98-107); CREATININE SERUM 0.81 MG/DL (0.60-1.30); GFR ESTIMATED > 60; GLUCOSE 192 MG/DL (70-105); MAGNESIUM 1.9 MG/DL (1.8-2.4); PHOSPHORUS 2.6 MG/DL (2.3-4.7); POTASSIUM 4.1 MMOL/L (3.6-5.0); SODIUM 137 MMOL/L (135-145)
[2017-10-11] MEDS ORDERED: FUROSEMIDE 40 MG/4 ML INJ (LASIX) IVP SCH (19:01)
[2017-10-11] MEDS ORDERED: LACT1CAP65 PO (19:52)
[2017-10-11 20:00] VITALS: BP 134/60
[2017-10-11] MEDS: KCL 10 MEQ TAB (MICRO K) PO SCH (20:41)
[2017-10-12] VITALS: BP 158/69
[2017-10-12 04:00] VITALS: BP 170/80
[2017-10-12 06:24] LABS: BASOPHILS % (AUTO) 1 % (0-10); EOSINOPHILS # (AUTO) 0.2 10^3/uL (0.0-0.3); EOSINOPHILS % (AUTO) 4 % (0-10); HEMATOCRIT 31 % (40-54); HEMOGLOBIN 10.2 G/DL (13.3-17.7); LYMPHOCYTES # (AUTO) 1.4 X 10^3 (1.0-4.0); LYMPHOCYTES % (AUTO) 27 % (12-44); MEAN CORPUSCULAR HEMOGLOBIN 31 PG (25-34); MEAN CORPUSCULAR HGB CONC 33 G/DL (32-36); MEAN CORPUSCULAR VOLUME 95 FL (80-99); MONOCYTES # (AUTO) 0.7 X 10^3 (0.0-1.0); MONOCYTES % (AUTO) 12 % (0-12); NEUTROPHILS % (AUTO) 57 % (42-75); PLATELET COUNT 117 10^3/uL (130-400); RED BLOOD COUNT 3.27 10^6/uL (4.35-5.85); RED CELL DISTRIBUTION WIDTH 13.9 % (10.0-14.5); WHITE BLOOD COUNT 5.3 10^3/uL (4.3-11.0)
[2017-10-12] MEDS: PROPRANOLOL 20 MG (INDERAL) TABLET PO SCH (06:30)
[2017-10-12 06:49] LABS: ALANINE AMINOTRANSFERASE 22 U/L (0-55); ALBUMIN 2.8 GM/DL (3.2-4.5); ALKALINE PHOSPHATASE 184 U/L (40-136); BILIRUBIN,TOTAL 0.9 MG/DL (0.1-1.0); BUN/CREATININE RATIO 11; CALCIUM 7.8 MG/DL (8.5-10.1); CARBON DIOXIDE 30 MMOL/L (21-32); CHLORIDE 100 MMOL/L (98-107); CREATININE SERUM 0.91 MG/DL (0.60-1.30); GFR ESTIMATED > 60; GLUCOSE 162 MG/DL (70-105); POTASSIUM 4.3 MMOL/L (3.6-5.0); SODIUM 138 MMOL/L (135-145); TOTAL PROTEIN 5.8 GM/DL (6.4-8.2)
[2017-10-12] MEDS: inSUlin (REGULAR) HUMAN 1 UNIT/0.01 ML (CHARGE PER UNIT) SC SCH ×2 (06:51→11:00)
[2017-10-12] MEDS: RT-ALBUTEROL/IPRATROPIUM 3 ML (DUONEB) VIAL INH SCH (06:55)
[2017-10-12 08:00] VITALS: BP 143/68
[2017-10-12] MEDS: HYDROcodone/APAP 10 MG/325 MG (LORTAB) TAB PO PRN (08:07)
[2017-10-12] MEDS: KCL 10 MEQ TAB (MICRO K) PO SCH (08:09)
[2017-10-12] MEDS: morphine ER 15 MG (MS CONTIN) TAB PO SCH (08:13)
[2017-10-12] MEDS ORDERED: FUROSEMIDE 40 MG (LASIX) TAB PO SCH (09:00)
[2017-10-12] MEDS ORDERED: LACTOBACILLUS Acidoph/Bulgar (LACTINEX/FLORANEX) TAB PO SCH (09:00)
[2017-10-12] MEDS ORDERED: PROP80TA3 PO (10:19)
[2017-10-12] MEDS ORDERED: AZIT250T12 PO (10:24)
[2017-10-12] MEDS ORDERED: BENZ-13 PO (10:24)
--- NOTE | 2017-10-12 10:27 | Discharge Instructions ---
Discharge [facility] Discharge Medications New, Converted or Re-Newed RX: Transmitted to Pharmacy New Medications: Benzonatate (Tessalon Perle) 100 Mg Capsule 100 MG PO TID PRN for COUGH, #30 CAP 0 Refills Azithromycin (Azithromycin) 250 Mg Tablet 250 MG PO DAILY@1700 for 3 Days, #3 TAB 0 Refills Continued Medications: Aspirin/Acetaminophen/Caffeine (Excedrin Extra Strength Caplet) 1 Each Tablet 1 TAB PO BID PRN for PAIN-MILD, TAB Bethanechol Chl (Urecholine Tablet) 25 Mg Tab 25 MG PO TID for 30 Days, TAB Doxazosin Mesylate (Cardura) 8 Mg Tablet 4 MG PO 1700 Furosemide (Furosemide) 40 Mg Tablet 40-80 MG PO DAILY PRN for FLUID RETENTION TAKES 1 TO 2 (40MG) TABLETS NEEDED FOR FLUID RETENTION Hydrocodone/Acetaminophen (Hydrocodon-Acetaminophn 10-325) 1 Each Tablet 1 TAB PO Q8H PRN for PAIN-MODERATE Insulin Glargine,Hum.rec.anlog (Lantus 10 Ml Vial) 100 Unit/1 Ml Vial 4-5 UNITS SQ HS Lactobacillus Rhamnosus GG (Culturelle) 1 Each Cap.sprink 1 EACH PO DAILY, CAP Lisinopril (Lisinopril) 10 Mg Tablet 10 MG PO 1700, TAB Lorazepam (Lorazepam) 0.5 Mg Tablet 0.5 MG PO BID PRN for ANXIETY Morphine Sulfate (Morphine Sulfate ER) 15 Mg Tablet.er 15 MG PO BID Multivitamin (Multivitamins) 1 Each Tablet 1 TAB PO DAILY, TAB Naphazoline/Pheniramine (Naphcon-A Eye Drops) 15 Ml Soln 1-2 DROPS OU TID PRN for ITCHING, EA Potassium Chloride (Potassium Chloride) 10 Meq Tablet.er 10 MEQ PO DAILY Propranolol HCl (Propranolol HCl) 80 Mg Tablet 40 MG PO BID, TAB Discontinued Medications: Cyclobenzaprine Hcl (Cyclobenzaprine Hcl) 10 Mg Tablet 10 MG PO BID PRN for MUSCLE SPASMS NEEDED FOR MUSCLE SPASM Ondansetron (Ondansetron Odt) 8 Mg Tab.rapdis 8 MG PO Q8H PRN for NAUSEA/VOMITING-1ST LINE Patient Instructions Goal/Follow Up Appt: Follow up with Dr. Farrell on 10/19 at 11:20 am. Return to The Hospital For: Fever, inability to keep down or take medications, difficulty breathing Activity & Diet Discharge Diet: ADA Diet Activity as Tolerated: Yes Copy Copies To 1: DERRICK FARRELL MD, BETHANY N MD Oct 12, 2017 10:27
--- NOTE | 2017-10-12 10:28 | Discharge Summary ---
Diagnosis/Chief Complaint Date of Admission Oct 10, 2017 at 2:53 pm Date of Discharge Oct 12, 2017 Admission Diagnosis Admission Diagnosis (1) Lymphedema of both lower extremities Status: Chronic (2) Bronchitis Status: Acute (3) Hypokalemia Status: Acute (4) Hypomagnesemia Status: Acute (5) IDDM (insulin dependent diabetes mellitus) Status: Chronic (6) HTN (hypertension) Status: Chronic Qualifiers: Qualified Codes: I10 - Essential (primary) hypertension (7) Debility Status: Chronic (8) Normocytic anemia Status: Chronic (9) Cirrhosis of liver Status: Chronic Qualified Codes: K74.60 - Unspecified cirrhosis of liver Discharge Diagnosis (1) Lymphedema of both lower extremities Status: Chronic Assessment & Plan: - Improved with increased dose of lasix, no signs of cellulitis, stopped rocephin 10/11, resumed home lasix dose day before d/c (2) Bronchitis Status: Acute Assessment & Plan: - Continue Z-pack, titrate off oxygen as tolerated- discharged with 3 days of azithromycin to complete course for possible atypical pneumonia, but suspect viral bronchitis most likely (3) Hypokalemia Status: Acute Assessment & Plan: - Replaced (4) Hypomagnesemia Status: Acute Assessment & Plan: - Replaced (5) IDDM (insulin dependent diabetes mellitus) Status: Chronic Assessment & Plan: - Poor PO intake, holding home insulin, SSI (6) HTN (hypertension) Status: Chronic Assessment & Plan: - Resumed home meds Qualifiers: Qualified Codes: I10 - Essential (primary) hypertension (7) Debility Status: Chronic Assessment & Plan: - PT to work with patient, Mostly wheelchair bound at home (8) Normocytic anemia Status: Chronic Assessment & Plan: - No signs of acute bleeding, likely 2/2 chronic disease, will continue to monitor (9) Cirrhosis of liver Status: Chronic Assessment & Plan: - LFTs at baseline Qualifiers: Qualified Codes: K74.60 - Unspecified cirrhosis of liver Chief Complaint/HPI Chief Complaint/HPI 72 M with multiple chronic medical conditions that was admitted with concerns for cellulitis. provides most of the history. States that she was sick about 2 weeks ago and was diagnosed with bronchitis and given an antibiotic. He started having a cough on Thursday and then was not eating well. He missed several doses of his medications because he was not feeling well. She states that she then noticed that his legs were more swollen then normal and very red and tender. He denies any pain or discomfort this AM other then his normal back and knee pain. He was able to get some rest last night and feels better then when he came in. Discharge Summary-Simple/Stand Consultations Discharge Physical Examination Allergies: Coded Allergies: metformin (Unverified Allergy, Severe, 11/11/12) iodine (Unverified Allergy, Unknown, 10/23/13) Vitals & I&Os Vital Sign - Last 12Hours Date Time Temp Pulse Resp B/P (MAP) Pulse Ox O2 Delivery O2 Flow Rate FiO2 10/12/17 08:00 97.5 57 16 143/68 (93) 93 Nasal Cannula 2.00 Intake and Output 10/12/17 00:00 Intake Total 850 ml Output Total 800 ml Balance 50 ml General Appearance: Alert, No Acute Distress Respiratory: Clear to Auscultation, Normal Air Movement Cardiovascular: Regular Rate, No Murmurs Extremities: Other (mild lower extremity edema to knees bilaterally with marked improvement noted based on marked skin wrinkling. Chronic skin darkening , no bright erythema or warmth.) Psych/Mental Status: Mood NL Hospital Course See final discharge diagnosis. Labs Laboratory Tests Test 10/10/17 13:48 10/10/17 16:54 10/10/17 20:48 10/11/17 05:18 Range/Units White Blood Count 4.3 4.5 4.3-11.0 10^3/uL Red Blood Count 3.31 L 3.07 L 4.35-5.85 10^6/uL Hemoglobin 10.3 L 9.5 L 13.3-17.7 G/DL Hematocrit 31 L 29 L 40-54 % Mean Corpuscular Volume 93 93 80-99 FL Mean Corpuscular Hemoglobin 31 31 25-34 PG Mean Corpuscular Hemoglobin Concent 34 33 32-36 G/DL Red Cell Distribution Width 13.4 13.4 10.0-14.5 % Platelet Count 99 L 93 L 130-400 10^3/uL Mean Platelet Volume 9.9 9.8 7.4-10.4 FL Neutrophils (%) (Auto) 52 51 42-75 % Lymphocytes (%) (Auto) 31 29 12-44 % Monocytes (%) (Auto) 11 15 H 0-12 % Eosinophils (%) (Auto) 5 4 0-10 % Basophils (%) (Auto) 1 1 0-10 % Neutrophils # (Auto) 2.2 2.3 1.8-7.8 X 10^3 Lymphocytes # (Auto) 1.3 1.3 1.0-4.0 X 10^3 Monocytes # (Auto) 0.5 0.7 0.0-1.0 X 10^3 Eosinophils # (Auto) 0.2 0.2 0.0-0.3 10^3/uL Basophils # (Auto) 0.1 0.1 0.0-0.1 10^3/uL Prothrombin Time 15.5 H 12.2-14.7 SEC INR Comment 1.2 0.8-1.4 Activated Partial Thromboplast Time 30 24-35 SEC Sodium Level 135 138 135-145 MMOL/L Potassium Level 3.1 L 2.8 L 3.6-5.0 MMOL/L Chloride Level 95 L 99 98-107 MMOL/L Carbon Dioxide Level 31 29 21-32 MMOL/L Anion Gap 9 10 5-14 MMOL/L Blood Urea Nitrogen 7 9 7-18 MG/DL Creatinine 0.94 0.82 0.60-1.30 MG/DL Estimat Glomerular Filtration Rate > 60 > 60 BUN/Creatinine Ratio 7 11 Glucose Level 197 H 146 H 70-105 MG/DL Lactic Acid Level 1.58 0.50-2.00 MMOL/L Calcium Level 7.3 L 7.0 L 8.5-10.1 MG/DL Magnesium Level 1.1 L 1.8-2.4 MG/DL Total Bilirubin 1.1 H 0.8 0.1-1.0 MG/DL Aspartate Amino Transf (AST/SGOT) 53 H 36 H 5-34 U/L Alanine Aminotransferase (ALT/SGPT) 29 23 0-55 U/L Alkaline Phosphatase 218 H 178 H 40-136 U/L Troponin I < 0.30 <0.30 NG/ML B-Type Natriuretic Peptide 853.3 H <100.0 PG/ML Total Protein 6.2 L 5.4 L 6.4-8.2 GM/DL Albumin 3.1 L 2.6 L 3.2-4.5 GM/DL Glucometer 179 H 205 H 70-110 MG/DL Test 10/11/17 05:21 10/11/17 11:11 10/11/17 16:04 10/11/17 17:00 Range/Units Glucometer 151 H 142 H 200 H 70-110 MG/DL Sodium Level 137 135-145 MMOL/L Potassium Level 4.1 3.6-5.0 MMOL/L Chloride Level 99 98-107 MMOL/L Carbon Dioxide Level 30 21-32 MMOL/L Anion Gap 8 5-14 MMOL/L Blood Urea Nitrogen 9 7-18 MG/DL Creatinine 0.81 0.60-1.30 MG/DL Estimat Glomerular Filtration Rate > 60 BUN/Creatinine Ratio 11 Glucose Level 192 H 70-105 MG/DL Calcium Level 7.1 L 8.5-10.1 MG/DL Phosphorus Level 2.6 2.3-4.7 MG/DL Magnesium Level 1.9 1.8-2.4 MG/DL Test 10/11/17 20:26 10/12/17 05:54 Range/Units Glucometer 231 H 70-110 MG/DL White Blood Count 5.3 4.3-11.0 10^3/uL Red Blood Count 3.27 L 4.35-5.85 10^6/uL Hemoglobin 10.2 L 13.3-17.7 G/DL Hematocrit 31 L 40-54 % Mean Corpuscular Volume 95 80-99 FL Mean Corpuscular Hemoglobin 31 25-34 PG Mean Corpuscular Hemoglobin Concent 33 32-36 G/DL Red Cell Distribution Width 13.9 10.0-14.5 % Platelet Count 117 L 130-400 10^3/uL Mean Platelet Volume 10.0 7.4-10.4 FL Neutrophils (%) (Auto) 57 42-75 % Lymphocytes (%) (Auto) 27 12-44 % Monocytes (%) (Auto) 12 0-12 % Eosinophils (%) (Auto) 4 0-10 % Basophils (%) (Auto) 1 0-10 % Neutrophils # (Auto) 3.0 1.8-7.8 X 10^3 Lymphocytes # (Auto) 1.4 1.0-4.0 X 10^3 Monocytes # (Auto) 0.7 0.0-1.0 X 10^3 Eosinophils # (Auto) 0.2 0.0-0.3 10^3/uL Basophils # (Auto) 0.0 0.0-0.1 10^3/uL Sodium Level 138 135-145 MMOL/L Potassium Level 4.3 3.6-5.0 MMOL/L Chloride Level 100 98-107 MMOL/L Carbon Dioxide Level 30 21-32 MMOL/L Anion Gap 8 5-14 MMOL/L Blood Urea Nitrogen 10 7-18 MG/DL Creatinine 0.91 0.60-1.30 MG/DL Estimat Glomerular Filtration Rate > 60 BUN/Creatinine Ratio 11 Glucose Level 162 H 70-105 MG/DL Calcium Level 7.8 L 8.5-10.1 MG/DL Total Bilirubin 0.9 0.1-1.0 MG/DL Aspartate Amino Transf (AST/SGOT) 41 H 5-34 U/L Alanine Aminotransferase (ALT/SGPT) 22 0-55 U/L Alkaline Phosphatase 184 H 40-136 U/L Total Protein 5.8 L 6.4-8.2 GM/DL Albumin 2.8 L 3.2-4.5 GM/DL Radiology Reviewed Date of Exam: 10/10/17 CHEST 1 VIEW, AP/PA ONLY INDICATION: Chest pain and short of breath. FINDINGS: A single view of the chest shows normal heart size and vascularity. The lungs are clear. There is no effusion or pneumothorax. IMPRESSION: No acute abnormality is seen with no change from 12/17/2012. Discharge Instructions to patient/family Please see electronic discharge instructions given to patient. Discharge Medications Reviewed and agree with Discharge Medication list on patient's Discharge Instruction sheet Clinical Quality Measures DVT/VTE Risk/Contraindication: Risk Factor Score Per Nursin RFS Level Per Nursing on Admit: 4+=Very High Copy Copies To 1: DERRICK TANG MD, BETHANY N MD Oct 12, 2017 10:28 am
[2017-10-12 12:15] VITALS: BP 143/68
== END 2017-10-12 10:24 | disposition home or self-care (01) ==
LOC: EDUNIT# 13:32 → ER 13:33 → UNDOADMOB 14:53 → 4TH 14:53 → UNDODISOB 10-12 12:15
PROVIDERS: ADMIT Family Medicine; ATTEND Family Medicine
DX: I89.0 Lymphedema, not elsewhere classified (principal); J20.9 Acute bronchitis, unspecified; E83.42 Hypomagnesemia; E87.6 Hypokalemia; E83.51 Hypocalcemia; E88.09 Other disorders of plasma-protein metabolism, not elsewhere classified; D64.9 Anemia, unspecified; E11.9 Type 2 diabetes mellitus without complications; R06.02 Shortness of breath; I10 Essential (primary) hypertension; K74.60 Unspecified cirrhosis of liver; I73.9 Peripheral vascular disease, unspecified; F03.90 Unspecified dementia, unspecified severity, without behavioral disturbance, psychotic disturbance, mood disturbance, and anxiety; F43.10 Post-traumatic stress disorder, unspecified; R53.1 Weakness; F10.21 Alcohol dependence, in remission; Z79.82 Long term (current) use of aspirin; Z79.84 Long term (current) use of oral hypoglycemic drugs; Z79.899 Other long term (current) drug therapy; Z91.19 Patient's noncompliance with other medical treatment and regimen; Z86.14 Personal history of Methicillin resistant Staphylococcus aureus infection
CPT/HCPCS: 36415; 71045; 80048; 80053; 82962; 83605; 83735; 83880; 84100; 84484; 85025; 85610; 85730; 87040; 87804; 93005; 93041; 94640; 94760; 96365; 96367; 96368; 96375; G0378

== ENCOUNTER 2018-01-27 10:18 | Emergency (ER) | payer MEDICARE, OTHER ==
[~2018-01-27] VITALS: Ht 175.3 cm; Wt 64.4 kg
[~2018-01-27 10:18] MED LIST changes: +ASPI-992 PO; +AZIT250T12 PO; +BENZ-13 PO; +HYDR-3820 PO; +LACT1CAP65 PO; +LISI10TA2 PO; +MORP-33 PO; +MULT1TAB69 PO; +ONDA8TAB13 PO; +POTA10TA10 PO
--- NOTE | 2018-01-27 11:04 | ED General ---
General Chief Complaint: General Problems/Pain Stated Complaint: SEPSIS Source of Information: Patient Exam Limitations: No Limitations History of Present Illness Date Seen by Provider: Jan 27, 2018 Time Seen by Provider: 11:05 Initial Comments 2 ER per EMS from home with reports of possible sepsis. Patient had ongoing swelling to the lower extremity for about a month since progressed proximally to affect the scrotum now. He denies shortness of breath. He does report midline low back pain which is new since last night. reports decreased urine output only about 100 mL yesterday. Continue to health nurse practitioner Carole evaluated him at his house yesterday and found to be hypotensive and recommended he come to the hospital yesterday but he declined. uses a lift to move him about the house and his scrotum accidentally hit the post on the left and had some bleeding from this 2 days ago. Timing/Duration: Getting Worse Severity: Moderate Associated Systoms: No Chest Pain, No Fever/Chills Allergies and Home Medications Allergies Coded Allergies: metformin (Unverified Allergy, Severe, 11/11/12) iodine (Unverified Allergy, Unknown, 10/23/13) Home Medications Aspirin/Acetaminophen/Caffeine 1 Each Tablet, 1 TAB PO BID PRN for PAIN-MILD, ( Reported) Benzonatate 100 Mg Capsule, 100 MG PO TID PRN for COUGH Prescribed by: DERRICK TANG on 10/12/17 1024 Bethanechol Chl 25 Mg Tab, 25 MG PO TID Prescribed by: JESSICA MICHEL on 03/06/14 1008 Cefuroxime Axetil 250 Mg Tablet, 250 MG PO BID Prescribed by: SHANE YOUNG on 01/27/18 1446 Doxazosin Mesylate 8 Mg Tablet, 4 MG PO 1700, (Reported) Furosemide 40 Mg Tablet, 40-80 MG PO DAILY PRN for FLUID RETENTION, (Reported) TAKES 1 TO 2 (40MG) TABLETS NEEDED FOR FLUID RETENTION Hydrocodone/Acetaminophen 1 Each Tablet, 1 TAB PO Q8H PRN for PAIN-MODERATE, ( Reported) Insulin Glargine,Hum.rec.anlog 100 Unit/1 Ml Vial, 4-5 UNITS SQ HS, (Reported) Lactobacillus Rhamnosus GG 1 Each Cap.sprink, 1 EACH PO DAILY, (Reported) Lisinopril 10 Mg Tablet, 10 MG PO 1700, (Reported) Lorazepam 0.5 Mg Tablet, 0.5 MG PO BID PRN for ANXIETY, (Reported) Morphine Sulfate 15 Mg Tablet.er, 15 MG PO BID, (Reported) Multivitamin 1 Each Tablet, 1 TAB PO DAILY, (Reported) Naphazoline/Pheniramine 15 Ml Soln, 1-2 DROPS OU TID PRN for ITCHING, (Reported) Oxycodone HCl 5 Mg Tablet, 5 MG PO Q6H PRN for BACK PAIN Prescribed by: SHANE YOUNG on 01/27/18 1448 Potassium Chloride 10 Meq Tablet.er, 10 MEQ PO DAILY, (Reported) Propranolol HCl 80 Mg Tablet, 40 MG PO BID, (Reported) Spironolactone 25 Mg Tablet, 25 MG PO every other day Prescribed by: SHANE YOUNG on 01/27/18 1308 Patient Home Medication List Home Medication List Reviewed: Yes Review of Systems Constitutional: see HPI; No chills, No fever EENTM: see HPI Respiratory: no symptoms reported Cardiovascular: no symptoms reported Genitourinary: see HPI, decreased output Musculoskeletal: see HPI, back pain Skin: no symptoms reported Psychiatric/Neurological: No Symptoms Reported Past Qbnonzy-Xloqvu-Qsqmrs Hx Patient Social History Recent Hopitalizations: No Immunizations Up To Date Tetanus Booster (TDap): More than 5yrs PED Vaccines UTD: No Date of Pneumonia Vaccine: Dec 22, 2012 Date of Influenza Vaccine: May 13, 2016 Seasonal Allergies Seasonal Allergies: Yes Past Medical History Surgeries: Yes (HERNIA REP, SKIN GRAFT RIGHT FOOT, cataract removal right eye) Abdominal, Eye Surgery Respiratory: No Cardiac: Yes (ACVD) Chronic Edema/Swelling, Hypertension, Peripheral Vascular Neurological: Yes (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) Dementia Reproductive Disorders: No Sexually Transmitted Disease: No HIV/AIDS: No Genitourinary: Yes Prostate Problems, Kidney Stones, Renal Failure Gastrointestinal: Yes (GALLSTONES AND DIVERTICULOSIS NOTED ON CT) Gastroesophageal Reflux, Liver Disease/Jaundice, Diverticulosis, Cirrhosis, Gall Bladder Disease Musculoskeletal: Yes Arthritis, Chronic Back Pain, Gout Endocrine: Yes Diabetes, Insulin dep HEENT: Yes Cataract Cancer: No Psychosocial: Yes (ptsd) PTSD Integumentary: Yes Blood Disorders: Yes (ANEMIA) Adverse Reaction/Blood Tranf: No Family Medical History Cancer Cataract Family history: Arthritis Family history: Breast disease Family history: Cardiovascular disease Family history: Diabetes mellitus Family history: Hypertension Heart disease Myocardial infarction Visual impairment No Family History of: Abdominal aortic aneurysm Kingsbury's disease Alcoholism Aphasia Cancer of colon Chest pain Congenital heart disease Congestive heart failure Cystic fibrosis Dementia Dysphagia Family history: Allergy Family history: Alzheimer's disease Family history: Asthma Family history: Coronary thrombosis Family history: Gastrointestinal disease Family history: Glaucoma Family history: Osteoporosis Family history: Thyroid disorder Headache Hearing loss Hereditary disease History of - anemia History of - disorder History of - respiratory disease History of drug abuse Human immunodeficiency virus (HIV) seropositivity Hypercholesterolemia Infertile Kidney disease Malignant neoplasm of lung Parkinson's disease Prostate cancer Psychotic disorder Seizure disorder Stroke Tuberculosis No Pertinent Family Hx Physical Exam Vital Signs Vital Signs - First Documented 01/27/18 10:18 Pulse 82 Resp 18 B/P (MAP) 129/83 (98) Pulse Ox 100 O2 Delivery Room Air Capillary Refill : Height, Weight, BMI Height: 5'9.00" Weight: 142lbs.1.0oz.64.122246xd; 21.0 BMI Method:Stated General Appearance: No Apparent Distress, WD/WN, Chronically ill, Other ( appears very frail. Swelling noted up to the scrotum including the thighs and lower legs. Brownish red discoloration of the left lower leg consistent with venous stasis dermatitis. He does have a very small superficial skin tear to the scrotum without active bleeding. No crepitus and no erythema of the scrotum to suggest Herbert's.) Eyes: Bilateral Eye Normal Inspection, Bilateral Eye PERRL, Bilateral Eye EOMI Neck: Full Range of Motion, Normal Inspection Respiratory: No Accessory Muscle Use Cardiovascular: Regular Rate, Rhythm, Normal Peripheral Pulses, Systolic Murmur Gastrointestinal: Non Tender, Soft Extremity: Pedal Edema (4+ bilateral lower extremities) Neurologic/Psychiatric: Alert, Oriented x3 Skin: Normal Color, Warm/Dry Focused Exam Lactate Level 01/27/18 10:54: Lactic Acid Level 1.40 Lactic Acid Level Progress/Results/Core Measures Suspected Sepsis SIRS Temperature: Pulse: Respiratory Rate: Laboratory Tests 01/27/18 10:54: White Blood Count 5.7 Blood Pressure / Mean: 01/27/18 10:54: Lactic Acid Level 1.40 Laboratory Tests 01/27/18 10:54: Creatinine 1.34H, INR Comment 1.5H, Platelet Count 119L, Total Bilirubin 1.1H Results/Orders Lab Results Laboratory Tests Test 01/27/18 10:54 01/27/18 14:06 Range/Units White Blood Count 5.7 4.3-11.0 10^3/uL Red Blood Count 2.62 L 4.35-5.85 10^6/uL Hemoglobin 8.1 L 13.3-17.7 G/DL Hematocrit 25 L 40-54 % Mean Corpuscular Volume 95 80-99 FL Mean Corpuscular Hemoglobin 31 25-34 PG Mean Corpuscular Hemoglobin Concent 32 32-36 G/DL Red Cell Distribution Width 14.6 H 10.0-14.5 % Platelet Count 119 L 130-400 10^3/uL Mean Platelet Volume 11.3 H 7.4-10.4 FL Neutrophils (%) (Auto) 65 42-75 % Lymphocytes (%) (Auto) 23 12-44 % Monocytes (%) (Auto) 9 0-12 % Eosinophils (%) (Auto) 3 0-10 % Basophils (%) (Auto) 0 0-10 % Neutrophils # (Auto) 3.7 1.8-7.8 X 10^3 Lymphocytes # (Auto) 1.3 1.0-4.0 X 10^3 Monocytes # (Auto) 0.5 0.0-1.0 X 10^3 Eosinophils # (Auto) 0.2 0.0-0.3 10^3/uL Basophils # (Auto) 0.0 0.0-0.1 10^3/uL Prothrombin Time 18.0 H 12.2-14.7 SEC INR Comment 1.5 H 0.8-1.4 Activated Partial Thromboplast Time 31 24-35 SEC Sodium Level 141 135-145 MMOL/L Potassium Level 3.2 L 3.6-5.0 MMOL/L Chloride Level 109 H 98-107 MMOL/L Carbon Dioxide Level 21 21-32 MMOL/L Anion Gap 11 5-14 MMOL/L Blood Urea Nitrogen 28 H 7-18 MG/DL Creatinine 1.34 H 0.60-1.30 MG/DL Estimat Glomerular Filtration Rate 52 BUN/Creatinine Ratio 21 Glucose Level 100 70-105 MG/DL Lactic Acid Level 1.40 0.50-2.00 MMOL/L Calcium Level 7.0 L 8.5-10.1 MG/DL Total Bilirubin 1.1 H 0.1-1.0 MG/DL Aspartate Amino Transf (AST/SGOT) 55 H 5-34 U/L Alanine Aminotransferase (ALT/SGPT) 18 0-55 U/L Alkaline Phosphatase 129 40-136 U/L B-Type Natriuretic Peptide 602.2 H <100.0 PG/ML Total Protein 5.8 L 6.4-8.2 GM/DL Albumin 2.2 L 3.2-4.5 GM/DL Serum Alcohol 16 H <10 MG/DL Urine Color YELLOW Urine Clarity CLEAR Urine pH 5 5-9 Urine Specific [place] 1.020 1.016-1.022 Urine Protein NEGATIVE NEGATIVE Urine Glucose (UA) NEGATIVE NEGATIVE Urine Ketones NEGATIVE NEGATIVE Urine Nitrite NEGATIVE NEGATIVE Urine Bilirubin NEGATIVE NEGATIVE Urine Urobilinogen NORMAL NORMAL MG/DL Urine Leukocyte Esterase 1+ H NEGATIVE Urine RBC (Auto) 5+ H NEGATIVE Urine RBC >100 H /HPF Urine WBC 5-10 H /HPF Urine Squamous Epithelial Cells 0-2 /HPF Urine Renal Epithelial Cells NONE /HPF Urine Crystals NONE /LPF Urine Bacteria FEW H /HPF Urine Casts PRESENT /LPF Urine Hyaline Casts 10-25 H /LPF Urine Mucus NEGATIVE /LPF Urine Culture Indicated YES My Orders Orders - SHANE YOUNG APRN Protime With Inr (01/27/18 11:02) Partial Thromboplastin Time (01/27/18 11:02) Cbc With Automated Diff (01/27/18 11:02) Comprehensive Metabolic Panel (01/27/18 11:02) Blood Culture (01/27/18 11:02) Lactic Acid Analyzer (01/27/18 11:02) Chest 1 View, Ap/Pa Only (01/27/18 11:02) Ct Lumbar Spine Wo (01/27/18 11:02) Ct Abdomen/Pelvis Wo (01/27/18 11:02) Ua Culture If Indicated (01/27/18 11:02) BNP (01/27/18 11:02) Iv Heplock-Insert (Order) (01/27/18 11:02) Fentanyl Injection (Sublimaze Injection (01/27/18 11:15) Alcohol (01/27/18 11:10) Ns Iv 500 Ml (Sodium Chloride 0.9%) (01/27/18 13:15) Oxycodone Immediate Rel Tablet (Oxyir Ta (01/27/18 14:30) Urine Culture (01/27/18 14:06) Medications Given in ED Current Medications Medications Dose Ordered Sig/Joyce Route Start Time Stop Time Status Last Admin Dose Admin Fentanyl Citrate 50 mcg ONCE ONCE IVP 01/27/18 11:15 01/27/18 11:16 DC 01/27/18 11:27 50 MCG Oxycodone HCl 5 mg ONCE ONCE PO 01/27/18 14:30 01/27/18 14:31 DC 01/27/18 14:53 5 MG Vital Signs/I&O 01/27/18 10:18 Pulse 82 Resp 18 B/P (MAP) 129/83 (98) Pulse Ox 100 O2 Delivery Room Air Capillary Refill : Diagnostic Imaging Diagonstic Imaging: Xray Comments NAME: CELENA BARNETT MED REC#: [id number] PT STATUS: REG ER : 1945 PHYSICIAN: SHANE YOUNG APRN ADMIT DATE: 01/27/18/ER Draft Date of Exam:01/27/18 CHEST 1 VIEW, AP/PA ONLY INDICATION: Leg swelling, decreased urine output. COMPARISON: 10/11/2017 FINDINGS: Single frontal view of the chest is obtained. Heart size is normal. The pulmonary vessels appear unremarkable. There is no pneumothorax, mediastinal widening or pleural fluid. There is some atelectasis in the left midlung. Lungs otherwise clear. IMPRESSION: There is mild atelectasis in the left midlung. No additional abnormality is seen. Dictated on workstation # [id number] Dict: 01/27/18 1212 Trans: 01/27/18 1216 [id number] Interpreted by: TIM JOHNSON DO Electronically signed by: Departure Communication (Admissions) oxycodone for pain control. He is early on Lortab and MS Contin at home. I discussed with the the need to use the oxycodone instead of the hydrocodone temporarily but do not use both in addition to the MS Contin. She verbalizes understanding of these instructions. Impression Primary Impression: Cirrhosis of liver Additional Impressions: Ascites Anasarca Low back pain Disposition: 01 HOME, SELF-CARE Condition: Stable Departure-Patient Inst. Decision time for Depature: 13:06 Referrals: DERRICK TANG MD (PCP/Family) Primary Care Physician Patient Instructions: Cirrhosis, Fluid in the Belly (Ascites) Add. Discharge Instructions: 1. Follow-up with [facility]. Unfortunately this tends to be a progressive disease with progressive swelling, progressive distention of the abdomen with fluid. All discharge instructions reviewed with patient and/or family. Voiced understanding. Scripts Oxycodone HCl (Oxycodone HCl) 5 Mg Tablet 5 MG PO Q6H PRN for BACK PAIN, #10 TAB Prov: SHANE YOUNG APRN 01/27/18 Cefuroxime Axetil (Cefuroxime) 250 Mg Tablet 250 MG PO BID, #14 TAB Prov: SHANE YOUNG APRN 01/27/18 Spironolactone (Aldactone) 25 Mg Tablet 25 MG PO every other day, #20 TAB Prov: SHANE YOUNG APRN 01/27/18 Copy Copies To 1: DERRICK TANG MD, PETER J APRN Jan 27, 2018 11:04
[2018-01-27 11:12] LABS: BASOPHILS % (AUTO) 0 % (0-10); EOSINOPHILS # (AUTO) 0.2 10^3/uL (0.0-0.3); EOSINOPHILS % (AUTO) 3 % (0-10); HEMATOCRIT 25 % (40-54); HEMOGLOBIN 8.1 G/DL (13.3-17.7); LYMPHOCYTES # (AUTO) 1.3 X 10^3 (1.0-4.0); LYMPHOCYTES % (AUTO) 23 % (12-44); MEAN CORPUSCULAR HEMOGLOBIN 31 PG (25-34); MEAN CORPUSCULAR HGB CONC 32 G/DL (32-36); MEAN CORPUSCULAR VOLUME 95 FL (80-99); MEAN PLATELET VOLUME 11.3 FL (7.4-10.4); MONOCYTES # (AUTO) 0.5 X 10^3 (0.0-1.0); MONOCYTES % (AUTO) 9 % (0-12); NEUTROPHILS # (AUTO) 3.7 X 10^3 (1.8-7.8); NEUTROPHILS % (AUTO) 65 % (42-75); PLATELET COUNT 119 10^3/uL (130-400); RED BLOOD COUNT 2.62 10^6/uL (4.35-5.85); RED CELL DISTRIBUTION WIDTH 14.6 % (10.0-14.5); WHITE BLOOD COUNT 5.7 10^3/uL (4.3-11.0)
[2018-01-27] MEDS ORDERED: fentaNYL INJECTION 100 MCG/2 ML AMP IVP ONE (11:15)
[2018-01-27 11:28] LABS: ALBUMIN 2.2 GM/DL (3.2-4.5); BILIRUBIN,TOTAL 1.1 MG/DL (0.1-1.0); CREATININE SERUM 1.34 MG/DL (0.60-1.30); POTASSIUM 3.2 MMOL/L (3.6-5.0); TOTAL PROTEIN 5.8 GM/DL (6.4-8.2)
[2018-01-27 11:31] LABS: INR 1.5 (0.8-1.4)
--- NOTE | 2018-01-27 12:16 | Diagnostic Imaging Report ---
INDICATION: Leg swelling, decreased urine output. COMPARISON: 10/11/2017 FINDINGS: Single frontal view of the chest is obtained. Heart size is normal. The pulmonary vessels appear unremarkable. There is no pneumothorax, mediastinal widening or pleural fluid. There is some atelectasis in the left midlung. Lungs otherwise clear. IMPRESSION: There is mild atelectasis in the left midlung. No additional abnormality is seen. Dictated by: Dictated on workstation # [id number]
--- NOTE | 2018-01-27 12:45 | Diagnostic Imaging Report ---
PROCEDURE: CT abdomen and pelvis without contrast. TECHNIQUE: Multiple contiguous axial images were obtained through the abdomen and pelvis without the use of intravenous contrast. INDICATION: Bilateral lower extremity swelling and chronic back pain. COMPARISON: Correlation is made with prior CT abdomen from 02/27/2014. FINDINGS: Imaging through the lung bases does show some scarring or atelectasis in the left lower lobe posteriorly. The liver is diffusely low density consistent with hepatic steatosis. There appear to be multiple stones within the gallbladder. Pancreas is atrophic. The spleen is unremarkable. No adrenal mass is identified. Left kidney does contain several tiny calcifications consistent with nonobstructing calculi. Aorta is calcified but nonaneurysmal. The small and large bowel loops appear nonobstructed. There is moderate stool in the left colon. There has been an increase in ascites since prior CT. Moderate perihepatic and perisplenic ascites is seen. There is moderate free fluid in the pelvis as well. Fluid does extend into the right inguinal hernia. The bladder is unremarkable. Prostate is unremarkable. Bony structures demonstrate degenerative changes throughout the lumbar spine. There is edema throughout the integumentary system suggestive of anasarca. IMPRESSION: 1. Hepatic steatosis. 2. Moderate abdominal and pelvic ascites, increased since prior CT from 2013. 3. Integumentary and subcutaneous edema consistent with anasarca. Dictated by: Dictated on workstation # [id number]
--- NOTE | 2018-01-27 12:47 | Diagnostic Imaging Report ---
PROCEDURE: CT lumbar spine without contrast. TECHNIQUE: Multiple contiguous axial images were obtained through the lumbar spine without the use of intravenous contrast. Sagittal and coronal reformations were then performed. INDICATION: Low back pain. FINDINGS: There is normal lumbar lordotic curvature. Vertebral body heights are maintained. No acute compression fracture is detected. There is severe degenerative disc disease at all levels of the lumbar spine. Significant disc space narrowing is noted with marginal osteophyte formation present. Large anterior osteophytes L4-L5 as well as the L1-L2 and L2-L3 levels are seen. There is marked facet arthropathy present. No fracture is seen. IMPRESSION: Severe lumbar spondylosis. No acute fracture seen. MRI may be useful for further evaluation to evaluate for central canal or neuroforaminal stenosis. Dictated by: Dictated on workstation # [id number]
[2018-01-27] MEDS ORDERED: SPIR25TA PO (13:08)
[2018-01-27] MEDS ORDERED: NS IV 500 ML 500 ML IV SCH (13:15)
[2018-01-27 14:14] LABS: BILIRUBIN,URINE NEGATIVE (NEGATIVE); CLARITY,URINE CLEAR; COLOR,URINE YELLOW; GLUCOSE, URINE (UA) NEGATIVE (NEGATIVE); KETONES,URINE NEGATIVE (NEGATIVE); LEUKOCYTE ESTERASE ,URINE 1+ (NEGATIVE); NITRITE,URINE NEGATIVE (NEGATIVE); PH,URINE 5 (5-9); PROTEIN,URINE NEGATIVE (NEGATIVE); UROBILINOGEN,URINE NORMAL (NORMAL)
[2018-01-27 14:29] LABS: BACTERIA,URINE FEW /HPF; RBC,URINE >100 /HPF; SQUAMOUS EPITHELIAL CELL,UR 0-2 /HPF
[2018-01-27] MEDS ORDERED: CEFU250T80 PO (14:46)
[2018-01-27] MEDS ORDERED: OXYC-529 PO (14:48)
[2018-01-27 16:37] VITALS: BP 143/86
== END 2018-01-27 15:39 | disposition home or self-care (01) ==
LOC: EDUNIT# 10:18 → ER 10:19
DX: K74.60 Unspecified cirrhosis of liver (principal); R18.8 Other ascites; R60.1 Generalized edema; M54.5 Low back pain; I25.10 Atherosclerotic heart disease of native coronary artery without angina pectoris; I10 Essential (primary) hypertension; K21.9 Gastro-esophageal reflux disease without esophagitis; E11.51 Type 2 diabetes mellitus with diabetic peripheral angiopathy without gangrene; D46.9 Myelodysplastic syndrome, unspecified; F43.10 Post-traumatic stress disorder, unspecified; Z87.442 Personal history of urinary calculi; F03.90 Unspecified dementia, unspecified severity, without behavioral disturbance, psychotic disturbance, mood disturbance, and anxiety; Z91.041 Radiographic dye allergy status; Z88.8 Allergy status to other drugs, medicaments and biological substances; Z79.82 Long term (current) use of aspirin; Z79.4 Long term (current) use of insulin; Z98.890 Other specified postprocedural states
CPT/HCPCS: 36415; 71045; 72131; 74176; 80053; 80320; 81000; 83605; 83880; 85025; 85610; 85730; 87040; 87077; 87088; 87186; 96361; 96374